=== PATIENT | female | born 1945 | race Caucasian/White ===

== ENCOUNTER → 2018-11-01 03:17 | Outpatient (REF) | payer MEDICARE, SELFPAY ==
[2018-11-01 03:31] LABS: Microscopic, Urine URINE MICROSCOPIC (MICROSCOPIC)
[2018-11-01 03:33] LABS: Appearance,Urine CLEAR (Clear); Bilirubin,Urine Negative (Negative); Blood, Urine Negative (Negative); Color,Urine YELLOW (Yellow); Glucose,Urine (UA) Negative (Negative); Ketones,Urine Negative (Negative); Leukocyte Esterase,Urine TRACE (Negative); Nitrate,Urine Negative (Negative); Protein,Urine Negative (Negative); Specific Gravity, Urine 1.015 (1.005-1.030); Urobilinogen,Urine 0.2 EU/dl (0.2)
[2018-11-01 03:35] LABS: Amorphous Sediment,Urine Trace /lpf; Bacteria,Urine Trace /lpf; WBC,Urine 20-50 #/hpf (0-3)
== END ==
LOC: LAB.DROPOF 03:17
PROVIDERS: Visit Provider Emergency Medicine
DX: R35.0 Frequency of micturition (principal); R10.9 Unspecified abdominal pain
CPT/HCPCS: 81001; 87086

== ENCOUNTER → 2018-12-31 09:34 | Outpatient (CLI) | payer MEDICARE, SELFPAY ==
--- NOTE | 2018-12-31 09:44 | CT_ITS ---
CT abdomen wo/w con CLINICAL INDICATION: ITS.REASON: ENLARGED ADRENAL GLANDS ORDERING PHYSICIAN: Rajinder Pineda MD PATIENT AGE: 73 years COMPARISON: None TECHNIQUE: Axial images obtained without and with contrast with sagittal and coronal reformats. Delayed images were also obtained. All CT scans at the facility use one or more dose reduction, viz: automated exposure control, ma/kV adjustment per patient size (including targeted exams where dose is matched to indication, i.e. head), or iterative reconstruction technique. PROCEDURE: Oral Contrast: None IV Contrast: 75 mL's Optiray 350. FINDINGS: Small loculated effusion is noted on the right is nearly with atelectatic changes in the right lung base. Coronary artery calcifications are present. Normal heart size. The adrenal glands aren't enlarged. The right adrenal gland measures 2.6 x 1.4 cm. The left adrenal gland measures 2.6 x 1.7 cm. The adrenal glands are enlarged bilaterally. The density on the right is near 00 unenhanced. An enhanced density in the left is -17 Hounsfield units. This is consistent with adenomatous involvement. Initial post enhancement density on the right is 59 Hounsfield units and on the left 39 Hounsfield units. Delayed enhanced density on the right is 1 and on the left is negative 4. These findings are consistent with adenomatous involvement. The liver, spleen, and kidneys have an unremarkable appearance. There is mild distention of the gallbladder. Images of the upper pelvis show a cystic structure in the right adnexa incompletely imaged measuring 3 cm. There is mild lumbar scoliosis convex right. 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 There is mild wedging of L4 which may be chronic. IMPRESSION: Bilateral adrenal enlargement with enhancement characteristics consistent with adenomas. 3 cm cystic structure in the upper pelvis incompletely imaged which may represent an ovarian cyst.
== END ==
PROVIDERS: PCP Emergency Medicine; Visit Provider Emergency Medicine
DX: E27.8 Other specified disorders of adrenal gland (principal)
CPT/HCPCS: 74170; Q9967

== ENCOUNTER → 2019-01-13 07:45 | Outpatient (CLI) | payer MEDICARE, SELFPAY ==
--- NOTE | 2019-01-13 07:45 | US_ITS ---
US gallbladder HISTORY: ITS.REASON: nausea, abdominal pain ORDERING PHYSICIAN: Aurelio Estrada MD PATIENT AGE: 73 years Comparison: 62 and [birth year]2003 12/31/2018. FINDINGS: Common bile duct is normal measuring 4.3 mm and there is no intrahepatic biliary dilatation. In the lumen of the gallbladder there is a 3.9 cm oval-shaped hypoechoic focus along the posterior wall of the gallbladder. The margins would suggest within the lumen rather than a mucosal mass. There is no definite acoustic shadowing. Gallbladder wall is normal and there is no pericholecystic fluid. Visualized portions of the portal vein and right kidney are unremarkable except for age-related right renal cortical thinning. Because of the bowel gas pattern the IVC and pancreas are not well visualized. IMPRESSION: Abnormal gallbladder. This could be a nonshadowing large stone although more likely would be area of sludge formation. No definite acute inflammation.
== END ==
PROVIDERS: PCP Family Medicine; Visit Provider Surgery
DX: K82.9 Disease of gallbladder, unspecified (principal)
CPT/HCPCS: 76705

== ENCOUNTER 2019-01-25 15:20 | Inpatient (IN) ==
[2019-01-25 15:45] LABS: Basophils % 0.1 % (0.1-2.0); Eosinophils % 0.1 % (0.1-12.0); Hematocrit 38.9 % (37.0-47.0); Hemoglobin 11.8 g/dL (12.2-16.2); Lymphocytes % 5.2 % (10-50); Mean Corpuscular HGB Conc 30.4 g/dL (31.8-35.4); Mean Corpuscular Volume 91.6 fl (81-99); Monocytes # 0.6 K/mm3 (0.1-1.0); Neutrophils # 17.9 K/mm3 (1.8-7.8); Neutrophils % 91.4 % (37.0-80.0); Platelet Count 199 K/mm3 (142-424); Red Blood Count 4.24 M/mm3 (4.20-5.40); Red Cell Distribution Width 16.4 % (11.5-17.5); White Blood Count 19.6 K/mm3 (4.8-10.8)
[2019-01-25 15:56] LABS: Alanine Aminotransferase 17 U/L (12-78); Albumin Level 2.4 gm/dL (3.4-5.0); Albumin/Globulin Ratio 0.6 (1.1-1.8); Alkaline Phosphatase 97 U/L (46-116); Anion Gap 13.3 mEq/L (5-15); Aspartate Amino Transferase 13 U/L (15-37); Bilirubin,Total 0.5 mg/dL (0.2-1.0); Blood Urea Nitrogen 23 mg/dL (7-18); Carbon Dioxide 31 mmol/L (21.0-32.0); Chloride 103 mmol/L (98-107); Glucose 146 mg/dL (74-106); Sodium 143 mmol/L (136-145); Total Protein,Serum 6.4 gm/dL (6.4-8.2)
[2019-01-25 15:57] LABS: ABG Base Excess 5.3 mmol/L (-2.4-2.3); ABG HCO3 30.3 mmhg (22.0-26.0); ABG Oxygen Saturation 98 % (90-100); ABG PH 7.39 mmol/L (7.35-7.45); ABG PO2 98.8 mmhg (80-100); ABG TCO2 31.9 mmhg (23-27)
[2019-01-25 15:59] LABS: ABG PCO2 51.2 mmhg (35.0-45.0); Allen's Test Acceptable; Oxygen 100 %
--- NOTE | 2019-01-25 15:59 | Emergency Department Note ---
ED Disposition Clinical Impression: Pneumonia, Hypoxemia Disposition: Admitted As Inpatient Condition on Discharge: Fair Referrals: Provider,Referral, [Primary Care Provider] - Time of Disposition: 16:14 - Critical Care Critical Care Time: No Attestation: On 01/25/19, the high probability of a clinically significant, sudden or life threatening deterioration of the following system(s) required my full and direct attention, intervention and personal management. The time I documented below is in addition to time spent performing reported procedures but includes the follo wing listed in this critical care notation. Medical Decision Making - Medical Records Medical records reviewed: Yes: I reviewed the patient's medical records. - Luis Inquiry Pt receiving controlled substance: No Luis was queried for this patient: No Vital Signs: 01/25/19 15:20 Temperature 97.7 F Temperature Source Rectal Pulse Rate [Right Brachial] 87 Respiratory Rate 24 Blood Pressure [Right Arm] 121/56 L Blood Pressure Mean [Right Arm] 77 Blood Pressure Source [Right Arm] Automatic Cuff Blood Pressure Position [Right Arm] Sitting 02 Sat by Pulse Oximetry 97 Oxygen Delivery Method Non-Rebreather - Lab Data Lab results reviewed: Yes: I reviewed the patient's lab results. Lab Results 01/25/19 15:20: WBC 19.6 H, RBC 4.24, Hgb 11.8 L, Hct 38.9, MCV 91.6, MCH 27.8, MCHC 30.4 L, RDW 16.4, Plt Count 199, MPV 9.0, Neut % (Auto) 91.4 H, Lymph % (Auto) 5.2 L, [place] % (Auto) 3.0, Eos % (Auto) 0.1, Baso % (Auto) 0.1, Neut # (Au to) 17.9 H, Lymph # (Auto) 1.0, [place] # (Auto) 0.6, Eos # (Auto) 0.0, Baso # (Auto) 0.0 01/25/19 15:20: Sodium 143, Potassium 4.3, Chloride 103, Carbon Dioxide 31, Anion Gap 13.3, BUN 23 H, Creatinine 1.24 H, Estimated Creat Clear 59, Estimated GFR 42 L, Est GFR ( Amer) 51 L, Glucose 146 H, Calcium 9.0, Total Bilirubin 0.5, AST 13 L, ALT 17, Alkaline Phosphatase 97, Troponin I < 0.02, Total Protein 6.4, Albumin 2.4 L, Globulin 4.0 H, Albumin/Globulin Ratio 0.6 L 01/25/19 15:54: Specimen Source Right brachial, O2 % 100, ABG pH 7.39, ABG pCO2 51.2 H, ABG pO2 98.8, ABG HCO3 30.3 H, ABG Total CO2 31.9 H, ABG O2 Saturation 98, ABG Base Excess 5.3 H, Braulio Test Acceptable Result diagrams: 01/25/19 15:20 01/25/19 15:20 Orders (Tests/Meds): ORDERS Category Date Time Status XR chest portable Stat Exams 01/25/19 15:27 Taken B-Type Natriuretic Peptide Stat Lab 01/25/19 15:20 Received CBC w/Auto Diff [Complete Blood Count Auto Diff] Stat Lab 01/25/19 15:20 Results Lactic Acid Stat Lab 01/25/19 15:27 Ordered Blood Culture Stat Micro 01/25/19 15:27 Ordered Resp/SOB HPI - General Chief Complaint: Shortness of Breath/Dyspnea Stated Complaint: shortness of air Time Seen by Provider: 01/25/19 15:56 Mode of Arrival: EMS Source of Information: EMS Limitations: No Limitations Description of Symptoms (Recalled from ER Triage Doc. by RN): increased soa, increased lethargy. staff state that she normall answers to name and sometimes surroundings, with moderate to maximum assist to get up and move. usually stays in bed, however this date is more difficult to arouse; staff nurse states that she noticed incr issues with breathing noted - History of Present Illness dyspnea, decreased BS in RLL - Related Data Home Medications Medication Instructions Recorded Confirmed amlodipine 10 mg tablet 10 mg PO DAILY 12/25/18 01/20/19 aripiprazole 5 mg tablet 5 mg PO DAILY 12/25/18 01/20/19 atorvastatin 10 mg tablet 10 mg PO QHS 12/25/18 01/20/19 carvedilol 25 mg tablet 25 mg PO BID 12/25/18 01/20/19 chlordiazepoxide 25 mg capsule 25 mg PO Q8H PRN 12/25/18 01/20/19 donepezil 5 mg tablet 5 mg PO DAILY 12/25/18 01/20/19 doxazosin 4 mg tablet 4 mg PO DAILY 12/25/18 01/20/19 lactulose 10 gram/15 mL (15 mL) 20 g PO QID 12/25/18 01/20/19 oral solution levothyroxine 112 mcg tablet 112 mcg PO DAILY 12/25/18 01/20/19 levothyroxine 25 mcg tablet 25 mcg PO DAILY 12/25/18 01/20/19 magnesium 400 mg (as magnesium 400 mg PO DAILY 12/25/18 01/20/19 oxide) capsule nicotine 21 mg/24 hr daily 1 patch TRANSDERMA Q24H 12/25/18 01/20/19 transdermal patch ondansetron HCl 4 mg tablet 4 mg PO QID PRN 12/25/18 01/20/19 oxycodone-acetaminophen 5 mg-325 1 tab PO Q6H PRN tab 12/25/18 01/20/19 mg tablet polyethylene glycol 3350 17 17 g PO DAILY 12/25/18 01/20/19 gram/dose oral powder sucralfate 1 gram tablet 1 g PO BID 12/25/18 01/20/19 tetrahydrozoline 0.05 % eye drops 1 drp OPHTHALMIC BID ml 12/25/18 01/20/19 thiamine mononitrate (vitamin B1) 100 mg PO DAILY 12/25/18 01/20/19 100 mg tablet Allergies Allergy/AdvReac Type Severity Reaction Status Date / Time Sulfa (Sulfonamide Allergy Unknown Verified 01/20/19 09:42 Antibiotics) [facility] History - Hepatitis A Screen Drug use history?: No High risk sexual behaviors?: No History of sexually transmitted infection?: No Currently employed?: No Childcare worker?: No Do you have indoor plumbing?: Yes Do you have electricity?: Yes Attestation statement:: This patient has been screened for Hepatitis A risk factors. I have reviewed the patient's past medical history: Yes Medical History: Reports:: Anxiety, Congestive Heart Failure, Hyperlipidemia, Hypertension, Urinary Tract Infection Other Medical History: Reports: Thyroid Disease Other Surgeries: Yes: Other - Social History Smoking Status: Former smoker Alcohol Intake: never Occupational Status: retired, disabled - Psychiatric History Pschychiatric History:: Reports:: Anxiety Family Hx:: Unable to obtain ROS Obtained: Yes unobtainable due to mental status, Yes other (dyspnea, weakness) - Constitutional Constitutional: Reports fever(s) - Cardiovascular Cardiovascular: Denies chest pain - Respiratory Respiratory: Yes chest congestion, Yes cough, Yes dyspnea - Gastrointestinal Gastrointestingal: Denies: abdominal pain, nausea, vomiting - Musculoskeletal Musculoskeletal: Denies back pain - Integumentary/Breasts Skin/Breast: Denies rash, Denies skin pain, Denies skin ulcer, Denies sores - Neurologic Neurologic: Denies tingling/numbness/burning sensations - Hematologic/Lymphatic Henatologic/Lymphatic: Denies easy bleeding, Denies easy bruising Physical Exam - General General appearance: obtunded - Head Head exam: atraumatic - ENT ENT exam: Present: normal exam - Respiratory Respiratory exam: Present: respiratory distress, other (rhonchi on right). Absent: normal lung sounds bilaterally - Cardiovascular Cardiovascular exam: Present: regular rate - Abdominal Exam Abdominal exam: Absent: soft, distention, tenderness - Extremities Exam Extremities exam: Present: normal inspection, full ROM, normal capillary refill. Absent: calf tenderness - Neurological Exam Neurological exam: Present: CN II-XII intact, other (grossly, answers only very simple questions). Absent: oriented X3 - Psychiatric Psychiatric exam: Present: normal affect, normal mood - Skin Skin exam: Present: warm, dry, intact, normal color
[2019-01-25 16:31] LABS: Anisocytosis 1+; Hypochromasia 1+; Lymphocytes % 1 % (10-50); Monocytes % 1 % (2-9); Neutrophils % 82 % (42-76); Total Cells Counted 100
[2019-01-26 07:14] LABS: Anion Gap 9.5 mEq/L (5-15); Calcium 9.1 mg/dL (8.5-10.1)
[2019-01-26 07:17] LABS: Eosinophils % 0.1 % (0.1-12.0); Hematocrit 35.1 % (37.0-47.0); Lymphocytes # 1.7 K/mm3 (0.7-4.5); Lymphocytes % 8.2 % (10-50); Mean Corpuscular HGB Conc 29.9 g/dL (31.8-35.4); Mean Corpuscular Volume 92.1 fl (81-99); Mean Platelet Volume 9.2 fl (7.4-10.4); Monocytes # 0.6 K/mm3 (0.1-1.0); Monocytes % 3.1 % (1.7-9.3); Neutrophils # 18.2 K/mm3 (1.8-7.8); Neutrophils % 88.7 % (37.0-80.0); Platelet Count 190 K/mm3 (142-424); Red Blood Count 3.81 M/mm3 (4.20-5.40); Red Cell Distribution Width 16.1 % (11.5-17.5); White Blood Count 20.5 K/mm3 (4.8-10.8)
[2019-01-26 07:33] LABS: Hemoglobin 10.4 g/dL (12.2-16.2)
--- NOTE | 2019-01-26 07:40 | Pharmacy Consult Notes ---
[facility] Pharmacy VTE Monitoring - Patient Demographics Admission date: 01/25/19 Report Date: 01/26/19 Time: 07:40 Allergies/Adverse Reactions: Patient Allergies Sulfa (Sulfonamide Antibiotics) Allergy (Unknown, Verified 01/20/19 09:42) Height: 1.85 m Weight: 87.657 kg Patient Problems: Current Active Problems (Updated 01/25/19 @ 16:15 by Rajinder Scherer MD) Pneumonia (Acute) Hypoxemia (Acute) - VTE Risk Labs: VTE Related Lab Results Hgb 10.4 g/dL (12.2-16.2) L D 01/26/19 06:13 Hct 35.1 % (37.0-47.0) L 01/26/19 06:13 Plt Count 190 K/mm3 (142-424) 01/26/19 06:13 BUN 39 mg/dL (7-18) H D 01/26/19 06:13 Creatinine 2.04 mg/dL (0.55-1.02) H D 01/26/19 06:13 Estimated Creat Clear 33 mL/min (50-200) 01/26/19 06:13 Was VTE Risk Assessment Performed: Yes VTE Score: 5 VTE Risk Level: Low Risk - Prophylaxis VTE Prophylaxis Ordered?: Yes Types of VTE Prophylaxis: TEDS Knee High Location of Applied Device: Bilateral Lower Extremeties - VTE Diagnosis Confirmed Treatment or plan recommended: Continue Current Treatment
--- NOTE | 2019-01-26 09:36 | History & Physical Report ---
*Admission Date: 01/25/19 <Luana Lagunas 01/26/19 09:36> *Chief complaint: soa <Luana Lagunas 01/26/19 09:36> *History of present illness: 73-year-old female from [facility] O2 dependent redness brought into the ER for complaints of increased shortness of breath, increased lethargic difficult to arouse. Per staff at [facility] in ER note patient was more difficult to arouse and breathing pattern was abnormal. On arrival to the ER ABG shows pH 7.39, PCO2 51.2, PO2 98.8, HC 03 30.3, total CO2 31.9, oxygen saturation 98% on 100% O2, base excess 5.3, white blood cell 19.6. Patient admitted for pneumonia,placed on BiPAP, IV antibiotics, IV fluids, and monitoring of O2 saturation and other vitals. <fernandoPrashantbibisavannah 01/26/19 09:49> [facility] History I have reviewed the patient's past medical history: Yes <fernandoPrashantruben 01/26/19 09:49> Medical History: Reports:: Anxiety, Congestive Heart Failure, Hyperlipidemia, Hypertension, Urinary Tract Infection <fernandoPrashantruben 01/26/19 09:36> *Have you ever received a pneumonia vaccine?: Yes <fernandoPrashantruben 01/26/19 09:36> *Have you received a flu vaccine this season?: Yes <JannethPrashantruben 01/26/19 09:36> Other Medical History: Reports: Thyroid Disease <Luana Lagunas 01/26/19 09:36> Other Surgeries: Yes: Other <Luana Lagunas 01/26/19 09:36> - *Social History Smoking Status: Former smoker <Luana Lagunas 01/26/19 09:36> Tobacco Type: cigarettes <Luana Lagunas 01/26/19 09:36> # Packs/Day (cigarettes): 1 <Luana Lagunas 01/26/19 09:36> Alcohol Intake: never <Luana Lagunas 01/26/19 09:36> *Occupational Status:: retired, disabled <FrLuana king - 01/26/19 09:36> Housing: jail <Luana king 01/26/19 09:36> *Travel in the last 8 weeks: None <Luana Lagunas 01/26/19 09:36> - Psychiatric History Pschychiatric History:: Reports:: Anxiety <Luana Lagunas 01/26/19 09:36> Family Hx:: Heart Attack, Hypertension, Stroke <Luana Lagunas 01/26/19 09:36> Review of Systems - Review of Systems Review of systems:: unable to obtain <Luana Lagunas 01/26/19 09:49> - *Neurologic Denies tingling/numbness/burning sensations <Luana Lagunas 01/26/19 09:36> Meds Home Medications Medication Instructions Recorded Confirmed Type ARIPiprazole [Abilify 5mg Tablet] 5 mg PO DAILY 01/25/19 01/25/19 History Amlodipine Besylate [Amlodipine 10 mg PO DAILY 01/25/19 01/25/19 History 10mg Tab] Atorvastatin Calcium [Lipitor 10mg 10 mg PO HS 01/25/19 01/25/19 History Tablet] Carvedilol [Carvedilol 25mg Tab] 25 mg PO BID 01/25/19 01/26/19 History Donepezil HCl [Aricept 5mg 5 mg PO DAILY 01/25/19 01/26/19 History Tablet] Doxazosin Mesylate [Cardura 4mg 4 mg PO DAILY 01/25/19 01/25/19 History Tab] Levothyroxine Sodium 112 mcg PO DAILY 01/25/19 01/25/19 History [Levothyroxine 112mcg (0.112mg) Tab] Levothyroxine Sodium 25 mcg PO DAILY 01/25/19 01/25/19 History [Levothyroxine 25mcg (0.025mg) Tab] Magnesium Oxide 400 mg PO DAILY 01/25/19 01/25/19 History Oxycodone HCl/Acetaminophen 1 tab PO Q6H 01/25/19 01/25/19 History [Oxycodone W/Apap 325mg Tablet] Polyethylene Glycol 3350 [Miralax 17 gm PO DAILY 01/25/19 01/25/19 History 17gm Packet] Sucralfate [Carafate 1gm Tab] 1 gm PO BID 01/25/19 01/25/19 History Thiamine HCl [Vitamin B-1] 100 mg PO DAILY 01/25/19 01/25/19 History chlordiazePOXIDE HCl [Librium 25mg 25 mg PO TID 01/25/19 01/25/19 History Capsule] Acetaminophen 500 mg PO Q6HP PRN 01/26/19 01/26/19 History Lactulose [Lactulose 10gm/15ml 20 gm PO DAILYP PRN 01/26/19 01/26/19 History Oral Soln] Ondansetron HCl [Ondansetron 4mg 4 mg PO Q6HP PRN 01/26/19 01/26/19 History Tablet] Propylene Glycol/Peg 400 [Systane 1 drp OP BIDP PRN 01/26/19 01/26/19 History 0.3-0.4% Eye Drops] <Singh Lacy - 01/26/19 18:44> Allergies Allergy/AdvReac Type Severity Reaction Status Date / Time Sulfa (Sulfonamide Allergy Unknown Verified 01/20/19 09:42 Antibiotics) <Singh Lacy - 01/26/19 18:44> Exam Vital signs and Labs for Last 24 Hours: Temp Pulse Resp BP Pulse Ox 98.8 F 66 21 124/57 L 94 L 01/26/19 15:47 01/26/19 15:47 01/26/19 15:47 01/26/19 15:47 01/26/19 15:47 Laboratory Results - last 24 hr 01/26/19 06:13: WBC 20.5 H*, RBC 3.81 L, Hgb 10.4 L D, Hct 35.1 L, MCV 92.1, MCH 27.6, MCHC 29.9 L, RDW 16.1, Plt Count 190, MPV 9.2, Neut % (Auto) 88.7 H, Lymph % (Auto) 8.2 L, [place] % (Auto) 3.1, Eos % (Auto) 0.1, Baso % (Auto) 0.0 L, Neut # (Auto) 18.2 H, Lymph # (Auto) 1.7, [place] # (Auto) 0.6, Eos # (Auto) 0.0, Baso # (Auto) 0.0, Total Counted 100, Neutrophils % (Manual) 81 H, Band Neutrophils % 5.0, Lymphocytes % (Manual) 10, Monocytes % (Manual) 4, Platelet Estimate Normal, RBC Morphology Normal 01/26/19 06:13: Sodium 142, Potassium 4.5, Chloride 104, Carbon Dioxide 33 H, Anion Gap 9.5, BUN 39 H D, Creatinine 2.04 H D, Estimated Creat Clear 33, Estimated GFR 24 L, Est GFR ( Amer) 29 L D, Glucose 113 H D, Calcium 9.1 <Singh Lacy - 01/26/19 18:44> Temp Pulse Resp BP Pulse Ox 98.8 F 57 L 20 107/45 L 99 01/26/19 08:00 01/26/19 08:00 01/26/19 08:00 01/26/19 08:00 01/26/19 08:00 Laboratory Results - last 24 hr 01/25/19 15:20: WBC 19.6 H, RBC 4.24, Hgb 11.8 L, Hct 38.9, MCV 91.6, MCH 27.8, MCHC 30.4 L, RDW 16.4, Plt Count 199, MPV 9.0, Neut % (Auto) 91.4 H, Lymph % (Auto) 5.2 L, [place] % (Auto) 3.0, Eos % (Auto) 0.1, Baso % (Auto) 0.1, Neut # (Auto) 17.9 H, Lymph # (Auto) 1.0, [place] # (Auto) 0.6, Eos # (Auto) 0.0, Baso # (Auto) 0.0, Total Counted 100, Neutrophils % (Manual) 82 H, Band Neutrophils % 16.0 H, Lymphocytes % (Manual) 1 L, Monocytes % (Manual) 1 L, Platelet Estimate Normal, Hypochromasia 1+, Anisocytosis 1+, Microcytosis 1+ 01/25/19 15:20: Sodium 143, Potassium 4.3, Chloride 103, Carbon Dioxide 31, Anion Gap 13.3, BUN 23 H, Creatinine 1.24 H, Estimated Creat Clear 59, Estimated GFR 42 L, Est GFR ( Amer) 51 L, Glucose 146 H, Calcium 9.0, Total Bilirubin 0.5, AST 13 L, ALT 17, Alkaline Phosphatase 97, Troponin I < 0.02, Total Protein 6.4, Albumin 2.4 L, Globulin 4.0 H, Albumin/Globulin Ratio 0.6 L 01/25/19 15:20: B-Natriuretic Peptide 147 H 01/25/19 15:50: Lactate 1.4 01/25/19 15:54: Specimen Source Right brachial, O2 % 100, ABG pH 7.39, ABG pCO2 51.2 H, ABG pO2 98.8, ABG HCO3 30.3 H, ABG Total CO2 31.9 H, ABG O2 Saturation 98, ABG Base Excess 5.3 H, Braulio Test Acceptable 01/26/19 06:13: WBC 20.5 H*, RBC 3.81 L, Hgb 10.4 L D, Hct 35.1 L, MCV 92.1, MCH 27.6, MCHC 29.9 L, RDW 16.1, Plt Count 190, MPV 9.2, Neut % (Auto) 88.7 H, Lymph % (Auto) 8.2 L, [place] % (Auto) 3.1, Eos % (Auto) 0.1, Baso % (Auto) 0.0 L, Neut # (Auto) 18.2 H, Lymph # (Auto) 1.7, [place] # (Auto) 0.6, Eos # (Auto) 0.0, Baso # (Auto) 0.0 01/26/19 06:13: Sodium 142, Potassium 4.5, Chloride 104, Carbon Dioxide 33 H, Anion Gap 9.5, BUN 39 H D, Creatinine 2.04 H D, Estimated Creat Clear 33, Estimated GFR 24 L, Est GFR ( Amer) 29 L D, Glucose 113 H D, Calcium 9.1 <Luana Lagunas - 01/26/19 09:36> I & O for Last 24 hours: Intake & Output 01/23/19 01/24/19 01/25/19 01/26/19 23:59 23:59 23:59 23:59 Intake Total 928 / 928 Output Total 300 / 300 Balance 628 / 628 Weight 89.953 kg 87.657 kg <Singh Lacy - 01/26/19 18:44> Intake & Output 01/23/19 01/24/19 01/25/19 01/26/19 11:59 11:59 11:59 11:59 Intake Total 828 / 828 Output Total 300 / 300 Balance 528 / 528 Weight 193 lb 4 oz <Luana Lagunas - 01/26/19 09:36> Microbiology Reports for the Last 24 Hours: Microbiology 01/25/19 15:50 Blood Blood Culture - Preliminary 01/25/19 15:50 Blood Blood Culture - Preliminary <Singh Lacy - 01/26/19 18:44> - Constitutional mild distress, obese <Luana Lagunas - 01/26/19 09:49> - *Routine HEENT Exam Head: Present: normocephalic <Luana Lagunas - 01/26/19 09:49> Eye: Present: PERRL <Luana Lagunas - 01/26/19 09:49> ENT: Present: mucous membranes moist <Luana Lagunas - 01/26/19 09:49> - *Routine Neck Exam Present: supple. Absent: lymphadenopathy <Luana Lagunas 01/26/19 09:49> - *Routine Respiratory Exam Present: rhonchi, diminished air movement <Luana Lagunas - 01/26/19 09:49> Comments: On BiPAP <Luana Lagunas - 01/26/19 09:49> - *Routine Cardiovascular Exam Present: RRR <Luana Lagunas 01/26/19 09:49> - *Routine Abdominal Exam Present: soft, normoactive bowel sounds. Absent: tenderness <Luana Lagunas 01/26/19 09:49> - *Routine Extremities Exam Present: full ROM, normal capillary refill. Absent: cyanosis, clubbing, edema <Luana Lagunas 01/26/19 09:49> - *Routine Skin Exam Present: intact, warm. Absent: rash <Luana Lagunas 01/26/19 09:49> - *Routine Neurological Exam Present: alert, altered mental status, moving all extremities <Luana Lagunas - 01/26/19 09:49> - Routine Psychiatric Exam Present: normal affect <Luana Lagunas - 01/26/19 09:49> Assessment and Plan (1) Hypoxemia Current visit: Yes Status: Acute Category: Medical Code(s): R09.02 - Hypoxemia (2) Pneumonia Current visit: Yes Status: Acute Qualifiers: Pneumonia type: due to unspecified organism Laterality: right Lung location: upper lobe of lung Qualified Code(s): J18.1 - Lobar pneumonia, unspecified organism Category: Medical Code(s): J18.9 - Pneumonia, unspecified organism (3) Left lower lobe pneumonia Current visit: Yes Status: Acute Qualifiers: Pneumonia type: due to unspecified organism Qualified Code(s): J18.1 - Lobar pneumonia, unspecified organism Category: Medical Code(s): J18.1 - Lobar pneumonia, unspecified organism <Luana Lagunas 01/26/19 09:45> (1) Hypoxemia Current visit: Yes Status: Acute Category: Medical Code(s): R09.02 - Hypoxemia (2) Pneumonia Current visit: Yes Status: Acute Qualifiers: Pneumonia type: due to unspecified organism Laterality: right Lung location: upper lobe of lung Qualified Code(s): J18.1 - Lobar pneumonia, unspecified organism Category: Medical Code(s): J18.9 - Pneumonia, unspecified organism (3) Left lower lobe pneumonia Current visit: Yes Status: Acute Qualifiers: Pneumonia type: due to unspecified organism Qualified Code(s): J18.1 - Lobar pneumonia, unspecified organism Category: Medical Code(s): J18.1 - Lobar pneumonia, unspecified organism <Singh Lacy - 01/26/19 18:44> - Assessment and plan all Dx Assessment and Plan for all problems:: Rounded with nurse practitioner. Agree with exam findings and care plan as documented. <Singh Lacy - 01/26/19 18:44> Rounded with Dr. Lacy all orders per Dr. Lacy Continue BiPAP patient is slightly more alert if continues to improve will remove BiPAP lunch and placed back on regular O2. Patient continues to cough up copious amount of thick yellow-green sputum. <Luana Lagunas 01/26/19 09:49>
[2019-01-26 10:37] LABS: Lymphocytes % 10 % (10-50); Monocytes % 4 % (2-9); Neutrophils % 81 % (42-76); Total Cells Counted 100
[2019-01-26 10:38] LABS: RBC Morphology Normal
[2019-01-27 06:06] LABS: Eosinophils % 0.1 % (0.1-12.0); Hematocrit 31.7 % (37.0-47.0); Hemoglobin 9.4 g/dL (12.2-16.2); Lymphocytes # 0.9 K/mm3 (0.7-4.5); Lymphocytes % 6.5 % (10-50); Mean Corpuscular HGB Conc 29.8 g/dL (31.8-35.4); Mean Corpuscular Volume 92.8 fl (81-99); Mean Platelet Volume 9.1 fl (7.4-10.4); Monocytes # 0.4 K/mm3 (0.1-1.0); Monocytes % 3.1 % (1.7-9.3); Neutrophils # 12.8 K/mm3 (1.8-7.8); Neutrophils % 90.3 % (37.0-80.0); Platelet Count 173 K/mm3 (142-424); Red Blood Count 3.42 M/mm3 (4.20-5.40); Red Cell Distribution Width 16.3 % (11.5-17.5); White Blood Count 14.1 K/mm3 (4.8-10.8)
[2019-01-27 06:59] LABS: Calcium 8.8 mg/dL (8.5-10.1)
--- NOTE | 2019-01-27 08:56 | Progress Note ---
<Luana Lagunas - Last Filed: 01/27/19 08:54> Internal Medicine - PN: Subj *Date: 01/27/19 *Time: 08:54 Interval history: Today patient is alert and answering questions. Close to baseline Exam Vital signs and Labs for Last 24 Hours: Temp Pulse Resp BP Pulse Ox 98.5 F 68 17 133/69 92 L 01/27/19 08:00 01/27/19 08:00 01/27/19 08:00 01/27/19 08:00 01/27/19 08:00 Laboratory Results - last 24 hr 01/26/19 06:13: Total Counted 100, Neutrophils % (Manual) 81 H, Band Neutrophils % 5.0, Lymphocytes % (Manual) 10, Monocytes % (Manual) 4, Platelet Estimate Normal, RBC Morphology Normal 01/27/19 05:36: WBC 14.1 H D, RBC 3.42 L, Hgb 9.4 L, Hct 31.7 L, MCV 92.8, MCH 27.6, MCHC 29.8 L, RDW 16.3, Plt Count 173, MPV 9.1, Neut % (Auto) 90.3 H, Lymph % (Auto) 6.5 L, Gilchrist % (Auto) 3.1, Eos % (Auto) 0.1, Baso % (Auto) 0.0 L, Neut # (Auto) 12.8 H, Lymph # (Auto) 0.9, Gilchrist # (Auto) 0.4, Eos # (Auto) 0.0, Baso # (Auto) 0.0 01/27/19 05:36: Sodium 145, Potassium 4.0, Chloride 109 H, Carbon Dioxide 29, Anion Gap 11.0, BUN 43 H, Creatinine 1.26 H D, Estimated Creat Clear 54, Estimated GFR 41 L, Est GFR ( Amer) 50 L D, Glucose 116 H, Calcium 8.8 I & O for Last 24 hours: Intake & Output 01/24/19 01/25/19 01/26/19 01/27/19 11:59 11:59 11:59 11:59 Intake Total 828 / 828 340 / 340 Output Total 300 / 300 Balance 528 / 528 340 / 340 Weight 193 lb 4 oz 195 lb 10 oz Microbiology Reports for the Last 24 Hours: Microbiology 01/25/19 15:50 Blood Blood Culture - Preliminary 01/25/19 15:50 Blood Blood Culture - Preliminary - Constitutional no acute distress, chronically ill appearing - *Routine HEENT Exam Head: Present: normocephalic Eye: Present: EOMI, PERRL ENT: Present: mucous membranes moist - *Routine Neck Exam Present: supple. Absent: lymphadenopathy - *Routine Respiratory Exam Present: rhonchi, diminished air movement - *Routine Cardiovascular Exam Present: RRR - *Routine Abdominal Exam Present: soft (Patient), normoactive bowel sounds. Absent: tenderness - *Routine Extremities Exam Present: full ROM. Absent: cyanosis ( is), clubbing, edema - *Routine Skin Exam Present: intact, warm. Absent: rash - *Routine Neurological Exam Present: alert - Routine Psychiatric Exam Present: normal affect Assessment and Plan (1) Hypoxemia Current visit: Yes Status: Acute Category: Medical Code(s): R09.02 - Hypoxemia (2) Pneumonia Current visit: Yes Status: Acute Qualifiers: Pneumonia type: due to unspecified organism Laterality: right Lung location: upper lobe of lung Qualified Code(s): J18.1 - Lobar pneumonia, unspecified organism Category: Medical Code(s): J18.9 - Pneumonia, unspecified organism (3) Left lower lobe pneumonia Current visit: Yes Status: Acute Qualifiers: Pneumonia type: due to unspecified organism Qualified Code(s): J18.1 - Lobar pneumonia, unspecified organism Category: Medical Code(s): J18.1 - Lobar pneumonia, unspecified organism - Assessment and plan all Dx Assessment and Plan for all problems:: rounded with jay all orders per jay Speech therapy to evaluate today. Continue present plan of care <Rom Muñoz - Last Filed: 01/27/19 14:36> Internal Medicine - PN: Subj *Date: 01/27/19 *Time: 14:35 Exam Vital signs and Labs for Last 24 Hours: Temp Pulse Resp BP Pulse Ox 98.4 F 65 21 147/59 H 92 L 01/27/19 12:00 01/27/19 12:00 01/27/19 12:00 01/27/19 12:00 01/27/19 12:00 Laboratory Results - last 24 hr 01/27/19 05:36: WBC 14.1 H D, RBC 3.42 L, Hgb 9.4 L, Hct 31.7 L, MCV 92.8, MCH 27.6, MCHC 29.8 L, RDW 16.3, Plt Count 173, MPV 9.1, Neut % (Auto) 90.3 H, Lymph % (Auto) 6.5 L, Gilchrist % (Auto) 3.1, Eos % (Auto) 0.1, Baso % (Auto) 0.0 L, Neut # (Auto) 12.8 H, Lymph # (Auto) 0.9, Gilchrist # (Auto) 0.4, Eos # (Auto) 0.0, Baso # (Auto) 0.0, Total Counted 100, Neutrophils % (Manual) 93 H, Lymphocytes % (Manual) 4 L, Monocytes % (Manual) 3, Platelet Estimate Normal, Hypochromasia 2+ 01/27/19 05:36: Sodium 145, Potassium 4.0, Chloride 109 H, Carbon Dioxide 29, Anion Gap 11.0, BUN 43 H, Creatinine 1.26 H D, Estimated Creat Clear 54, Estimated GFR 41 L, Est GFR ( Amer) 50 L D, Glucose 116 H, Calcium 8.8 01/27/19 06:10: Stl Aeromonas (PCR) Not detected, Stl C. cayetanensis PCR Not detected, Stool Rotavirus (PCR) Not detected, Stl Adenov F 40/41 PCR Not detected, Stool Astrovirus (PCR) Not detected, Stool Campylobacter PCR Not detected, Stl C.difficile Tox PCR Detected A, Stool Cryptosporidium PCR Not detected, Stl E.coli Shiga Tox PCR Not detected, Stool E coli O157 PCR Not d etected, Stl Enterotoxigenic E PCR Not detected, Stool EPEC (PCR) Not detected, Stool EAEC (PCR) Not detected, Stl E. histolytica PCR Not detected, Stool Giardia Lamblia PCR Not detected, Stool Salmonella PCR Not detected, Stool Sapovirus (PCR) Not detected, Stl P. shigelloides PCR Not detected, Stl Shigella/EIEC PCR Not detected, St Y.enterocolitica PCR Not detected, Stool Vibrio (PCR) Not detected, Stl Vibrio cholerae PCR Not detected, Stl Norovirus GI/GII PCR Not detected I & O for Last 24 hours: Intake & Output 01/25/19 01/26/19 01/27/1901/28/19 11:59 11:59 11:59 11:59 Intake Total 828 / 828 3968 / 3968 240 / 240 Output Total 300 / 300 Balance 528 / 528 3968 / 3968 240 / 240 Weight 193 lb 4 oz 195 lb 10 oz Microbiology Reports for the Last 24 Hours: Microbiology 01/25/19 15:50 Blood Blood Culture - Preliminary 01/25/19 15:50 Blood Blood Culture - Preliminary Assessment and Plan (1) Hypoxemia Current visit: Yes Status: Acute Category: Medical Code(s): R09.02 - Hypoxemia (2) Pneumonia Current visit: Yes Status: Acute Qualifiers: Pneumonia type: due to unspecified organism Laterality: right Lung location: upper lobe of lung Qualified Code(s): J18.1 - Lobar pneumonia, unspecified organism Category: Medical Code(s): J18.9 - Pneumonia, unspecified organism (3) Left lower lobe pneumonia Current visit: Yes Status: Acute Qualifiers: Pneumonia type: due to unspecified organism Qualified Code(s): J18.1 - Lobar pneumonia, unspecified organism Category: Medical Code(s): J18.1 - Lobar pneumonia, unspecified organism - Assessment and plan all Dx Assessment and Plan for all problems:: Agree with note... improving... c/w IV abx and await cultures.
[2019-01-27 10:08] LABS: Hypochromasia 2+; Lymphocytes % 4 % (10-50); Monocytes % 3 % (2-9); Neutrophils % 93 % (42-76); Total Cells Counted 100
[2019-01-28 06:59] LABS: Anion Gap 7.6 mEq/L (5-15); Calcium 8.8 mg/dL (8.5-10.1)
[2019-01-28 07:41] LABS: Basophils % 0.2 % (0.1-2.0); Eosinophils % 0.2 % (0.1-12.0); Hematocrit 34.1 % (37.0-47.0); Hemoglobin 9.7 g/dL (12.2-16.2); Lymphocytes # 1.1 K/mm3 (0.7-4.5); Lymphocytes % 11.6 % (10-50); Mean Corpuscular HGB Conc 28.5 g/dL (31.8-35.4); Mean Corpuscular Volume 96.3 fl (81-99); Mean Platelet Volume 8.9 fl (7.4-10.4); Monocytes # 0.4 K/mm3 (0.1-1.0); Neutrophils # 8.2 K/mm3 (1.8-7.8); Platelet Count 203 K/mm3 (142-424); Red Blood Count 3.55 M/mm3 (4.20-5.40); Red Cell Distribution Width 16.2 % (11.5-17.5); White Blood Count 9.8 K/mm3 (4.8-10.8)
--- NOTE | 2019-01-28 08:33 | Discharge Summary ---
General - General Admission date:: 01/25/19 Discharge date: 01/28/19 HPI HPI: 73-year-old female from [facility] O2 dependent redness brought into the ER for complaints of increased shortness of breath, increased lethargic difficult to arouse. Per staff at [facility] in ER note patient was more difficult to arouse and breathing pattern was abnormal. On arrival to the ER ABG shows pH 7.39, PCO2 51.2, PO2 98.8, HC 03 30.3, total CO2 31.9, oxygen saturation 98% on 100% O2, base excess 5.3, white blood cell 19.6. Patient admitted for pneumonia,placed on BiPAP, IV antibiotics, IV fluids, and monitoring of O2 saturation and other vitals. Hospital Course Hospital Course: X-ray shows right upper lobe pneumonia and possible left lower lobe pneumonia. Stool positive for C. difficile this is prison acquired we will continue p.o. vancomycin and contact precautions. Patient needed BiPAP and then transition to her regular home O2 at 3 L. Today patient alert back to baseline. Blood cultures positive for Haemophilus influenzae but to get the final result it has to be sent out and the final results will not be available for 7 days. Will treat with p.o. Levaquin and IV cefepime. Patient will be discharged back to [facility] with PICC line for IV antibiotics. Continue contact precautions and O2. Recheck CBC and CMP on Friday. Objective Vital signs: Temp Pulse Resp BP Pulse Ox 98.6 F 66 16 166/84 H 92 L 01/28/19 07:53 01/28/19 07:53 01/28/19 08:28 01/28/19 07:53 01/28/19 07:53 no acute distress, chronically ill appearing - *Routine HEENT Exam Head: Present: normocephalic Eye: Present: PERRL ENT: Present: mucous membranes moist - *Routine Respiratory Exam Present: rhonchi, wheezes, diminished air movement - *Routine Cardiovascular Exam Present: RRR - *Routine Abdominal Exam Present: soft, normoactive bowel sounds - *Routine Extremities Exam Present: full ROM - *Routine Skin Exam Present: intact - *Routine Neurological Exam Present: alert - Routine Psychiatric Exam Present: normal affect Results Labs on day of discharge: Labs from last 24 hours 0701/28/19 01/27/19 05:35 05:35 06:10 WBC 9.8 D RBC 3.55 L Hgb 9.7 L Hct 34.1 L MCV 96.3 MCH 27.4 MCHC 28.5 L RDW 16.2 Plt Count 203 MPV 8.9 Neut % (Auto) 84.0 H Lymph % (Auto) 11.6 Mckinley % (Auto) 4.0 Eos % (Auto) 0.2 Baso % (Auto) 0.2 Neut # (Auto) 8.2 H Lymph # (Auto) 1.1 Mckinley # (Auto) 0.4 Eos # (Auto) 0.0 Baso # (Auto) 0.0 Total Counted Neutrophils % (Manual) Lymphocytes % (Manual) Monocytes % (Manual) Platelet Estimate Hypochromasia Sodium 148 H Potassium 3.6 Chloride 114 H Carbon Dioxide 30 Anion Gap 7.6 BUN 31 H D Creatinine 0.94 D Estimated Creat Clear 71 Estimated GFR 58 L Est GFR ( Amer) 70 D Glucose 98 Calcium 8.8 Stl Aeromonas (PCR) Not detected Stl C. cayetanensis PCR Not detected Stool Rotavirus (PCR) Not detected Stl Adenov F 40/41 PCR Not detected Stool Astrovirus (PCR) Not detected Stool Campylobacter PCR Not detected Stl C.difficile Tox PCR Detected A Stool Cryptosporidium PCR Not detected Stl E.coli Shiga Tox PCR Not detected Stool E coli O157 PCR Not detected Stl Enterotoxigenic E PCR Not detected Stool EPEC (PCR) Not detected Stool EAEC (PCR) Not detected Stl E. histolytica PCR Not detected Stool Giardia Lamblia PCR Not detected Stool Salmonella PCR Not detected Stool Sapovirus (PCR) Not detected Stl P. shigelloides PCR Not detected Stl Shigella/EIEC PCR Not detected St Y.enterocolitica PCR Not detected Stool Vibrio (PCR) Not detected Stl Vibrio cholerae PCR Not detected Stl Norovirus GI/GII PCR Not detected 01/27/19 05:36 WBC RBC Hgb Hct MCV MCH MCHC RDW Plt Count MPV Neut % (Auto) Lymph % (Auto) Mckinley % (Auto) Eos % (Auto) Baso % (Auto) Neut # (Auto) Lymph # (Auto) Mckinley # (Auto) Eos # (Auto) Baso # (Auto) Total Counted 100 Neutrophils % (Manual) 93 H Lymphocytes % (Manual) 4 L Monocytes % (Manual) 3 Platelet Estimate Normal Hypochromasia 2+ Sodium Potassium Chloride Carbon Dioxide Anion Gap BUN Creatinine Estimated Creat Clear Estimated GFR Est GFR ( Amer) Glucose Calcium Stl Aeromonas (PCR) Stl C. cayetanensis PCR Stool Rotavirus (PCR) Stl Adenov F 40/41 PCR Stool Astrovirus (PCR) Stool Campylobacter PCR Stl C.difficile Tox PCR Stool Cryptosporidium PCR Stl E.coli Shiga Tox PCR Stool E coli O157 PCR Stl Enterotoxigenic E PCR Stool EPEC (PCR) Stool EAEC (PCR) Stl E. histolytica PCR Stool Giardia Lamblia PCR Stool Salmonella PCR Stool Sapovirus (PCR) Stl P. shigelloides PCR Stl Shigella/EIEC PCR St Y.enterocolitica PCR Stool Vibrio (PCR) Stl Vibrio cholerae PCR Stl Norovirus GI/GII PCR Preliminary micro results at discharge 01/25/19 15:50 Blood Culture - Preliminary Blood 01/25/19 15:50 Blood Culture - Preliminary Blood - Additional Comments rounded with Dr Muñoz all orders per Wanda DS: Diagnosis - Discharge Diagnosis (1) Hypoxemia Status: Acute (2) Pneumonia Status: Acute (3) Left lower lobe pneumonia Status: Acute (4) Bacteremia Status: Acute (5) C. difficile diarrhea Status: Acute (6) On home O2 Status: Acute (7) Dysphagia Status: Acute Discharge Plan - Patient Discharge Instructions ACTIVITY: Continue current activity DIET: continue same diet Patient Instructions: DI for Pneumonia -- Adult, DI for Hypoxia - Follow up Plan Follow up with: Luana Lagunas APRN [Advanced Practice Nurse] - Disposition: Xfer [facility] Home Medications: Home Medications Medication Instructions Recorded Confirmed Type ARIPiprazole [Abilify 5mg Tablet] 5 mg PO DAILY 01/25/19 01/25/19 History Amlodipine Besylate [Amlodipine 10 mg PO DAILY 01/25/19 01/25/19 History 10mg Tab] Atorvastatin Calcium [Lipitor 10mg 10 mg PO HS 01/25/19 01/25/19 History Tablet] Carvedilol [Carvedilol 25mg Tab] 25 mg PO BID 01/25/19 01/26/19 History Donepezil HCl [Aricept 5mg 5 mg PO DAILY 01/25/19 01/26/19 History Tablet] Doxazosin Mesylate [Cardura 4mg 4 mg PO DAILY 01/25/19 01/25/19 History Tab] Levothyroxine Sodium 112 mcg PO DAILY 01/25/19 01/25/19 History [Levothyroxine 112mcg (0.112mg) Tab] Levothyroxine Sodium 25 mcg PO DAILY 01/25/19 01/25/19 History [Levothyroxine 25mcg (0.025mg) Tab] Magnesium Oxide 400 mg PO DAILY 01/25/19 01/25/19 History Oxycodone HCl/Acetaminophen 1 tab PO Q6H 01/25/19 01/25/19 History [Oxycodone W/Apap 325mg Tablet] Polyethylene Glycol 3350 [Miralax 17 gm PO DAILY 01/25/19 01/25/19 History 17gm Packet] Sucralfate [Carafate 1gm Tab] 1 gm PO BID 01/25/19 01/25/19 History Thiamine HCl [Vitamin B-1] 100 mg PO DAILY 01/25/19 01/25/19 History chlordiazePOXIDE HCl [Librium 25mg 25 mg PO TID 01/25/19 01/25/19 History Capsule] Acetaminophen 500 mg PO Q6HP PRN 01/26/19 01/26/19 History Lactulose [Lactulose 10gm/15ml 20 gm PO DAILYP PRN 01/26/19 01/26/19 History Oral Soln] Ondansetron HCl [Ondansetron 4mg 4 mg PO Q6HP PRN 01/26/19 01/26/19 History Tablet] Propylene Glycol/Peg 400 [Systane 1 drp OP BIDP PRN 01/26/19 01/26/19 History 0.3-0.4% Eye Drops] Cefepime HCl [Maxipime] 1 gm IV Q12 10 Days vial.port 01/28/19 Rx Vancomycin HCl [Vancomycin 500mg 125 mg PO Q6 14 Days vial 01/28/19 Rx vial] levoFLOXacin [Levaquin 500mg 500 mg PO DAILY #10 tab 01/28/19 Rx tab] Prescriptions/Medication Reconciliation: New levoFLOXacin [Levaquin 500mg tab] 500 mg PO DAILY #10 tab Cefepime HCl [Maxipime] 1 gm IV Q12 10 Days vial.port Vancomycin HCl [Vancomycin 500mg vial] 125 mg PO Q6 14 Days vial Continued Sucralfate [Carafate 1gm Tab] 1 gm PO BID Levothyroxine Sodium [Levothyroxine 112mcg (0.112mg) Tab] 112 mcg PO DAILY Atorvastatin Calcium [Lipitor 10mg Tablet] 10 mg PO HS ARIPiprazole [Abilify 5mg Tablet] 5 mg PO DAILY Amlodipine Besylate [Amlodipine 10mg Tab] 10 mg PO DAILY Thiamine HCl [Vitamin B-1] 100 mg PO DAILY Oxycodone HCl/Acetaminophen [Oxycodone W/Apap 325mg Tablet] 1 tab PO Q6H Magnesium Oxide 400 mg PO DAILY Doxazosin Mesylate [Cardura 4mg Tab] 4 mg PO DAILY Donepezil HCl [Aricept 5mg Tablet] 5 mg PO DAILY chlordiazePOXIDE HCl [Librium 25mg Capsule] 25 mg PO TID Acetaminophen 500 mg PO Q6HP PRN PRN Reason: As Needed For Fever Or Pain Lactulose [Lactulose 10gm/15ml Oral Soln] 20 gm PO DAILYP PRN PRN Reason: STOMACH Ondansetron HCl [Ondansetron 4mg Tablet] 4 mg PO Q6HP PRN PRN Reason: Nausea Propylene Glycol/Peg 400 [Systane 0.3-0.4% Eye Drops] 1 drp OP BIDP PRN PRN Reason: DRY EYES Carvedilol [Carvedilol 25mg Tab] 25 mg PO BID Discontinued Levothyroxine Sodium [Levothyroxine 25mcg (0.025mg) Tab] 25 mcg PO DAILY Polyethylene Glycol 3350 [Miralax 17gm Packet] 17 gm PO DAILY
== END 2019-01-28 12:39 | DRG 194 ==
LOC: 2ND 15:20 → ER 15:20 → 2ND 18:22 → OBSVTOIN 18:32
PROVIDERS: ADMIT Internal Medicine Adolescent Medicine; ATTEND Internal Medicine Adolescent Medicine
CPT/HCPCS: 36415; 36569; 71010; 71045; 80048; 80053; 82803; 83605; 83880; 84484; 85007; 85025; 87040; 87077; 87507; 92610; 93005; 94660; 94761; 96365; 99284; C1751; G0378; J1956; J2405; J2543; J3370

== ENCOUNTER 2019-01-28 20:51 | Observation (INO) ==
--- NOTE | 2019-01-28 21:13 | Emergency Department Note ---
ED Disposition Clinical Impression: Hypernatremia, Hyperchloremia, Chronic anemia, Hypermagnesemia, Hypoxia Altered mental status Qualifiers: Altered mental status type: persistent vegetative state Qualified Code(s): R40.3 - Persistent vegetative state Pneumonia Qualifiers: Pneumonia type: due to unspecified organism Laterality: unspecified laterality Lung location: unspecified part of lung Qualified Code(s): J18.9 - Pneumonia, unspecified organism Leukocytosis Qualifiers: Leukocytosis type: unspecified Qualified Code(s): D72.829 - Elevated white blood cell count, unspecified Disposition: Admitted as Observation Condition on Discharge: Fair (Stable) Instructions: DI for Altered Mental Status Referrals: Rajinder Pineda MD [Primary Care Provider] - Rom Prather MD [Staff Physician] - Time of Disposition: 00:12 - Critical Care Critical Care Time: No Attestation: On 01/28/19, the high probability of a clinically significant, sudden or life threatening deterioration of the following system(s) required my full and direct attention, intervention and personal management. The time I documented below is in addition to time spent performing reported procedures but includes the following listed in this critical care notation. Medical Decision Making - Medical Records Medical records reviewed: Yes: I reviewed the patient's medical records. - Luis Inquiry Pt receiving controlled substance: No Luis was queried for this patient: No Vital Signs: 01/28/19 20:52 01/28/19 21:07 01/28/19 21:13 Temperature 99.6 F Temperature Source Rectal Pulse Rate 65 Pulse Rate [Right] 71 62 Respiratory Rate 24 Blood Pressure [Right Arm] 140/67 116/54 L Blood Pressure Mean [Right Arm] 91 74 Blood Pressure Source [Right Arm] Blood Pressure Position [Right Arm] Supine 02 Sat by Pulse Oximetry 88 L 91 L Oxygen Delivery Method CPAP BiPAP Oxygen Flow Rate (LPM) 15 01/28/19 21:30 01/28/19 22:00 01/28/19 22:30 Temperature Temperature Source Pulse Rate Pulse Rate [Right] 62 63 61 Respiratory Rate Blood Pressure [Right Arm] 136/75 134/59 L 130/61 Blood Pressure Mean [Right Arm] 95 84 84 Blood Pressure Source [Right Arm] Blood Pressure Position [Right Arm] 02 Sat by Pulse Oximetry 95 97 98 Oxygen Delivery Method BiPAP Oxygen Flow Rate (LPM) 01/28/19 22:35 01/28/19 23:00 01/28/19 23:45 Temperature Temperature Source Pulse Rate Pulse Rate [Right] 61 62 62 Respiratory Rate 22 Blood Pressure [Right Arm] 136/59 L 126/49 L 124/49 L Blood Pressure Mean [Right Arm] 84 74 74 Blood Pressure Source [Right Arm] Automatic Cuff Blood Pressure Position [Right Arm] Sitting 02 Sat by Pulse Oximetry 99 100 100 Oxygen Delivery Method BiPAP BiPAP BiPAP Oxygen Flow Rate (LPM) - Lab Data Lab Results 01/28/19 20:50: WBC 12.4 H D, RBC 3.75 L, Hgb 9.8 L, Hct 34.2 L, MCV 91.2, MCH 26.2 L, MCHC 28.8 L, RDW 15.8, Plt Count 228, MPV 7.6, Neut % (Auto) 84.4 H, Lymph % (Auto) 9.9 L, [place] % (Auto) 5.1, Eos % (Auto) 0.2, Baso % (Auto) 0.3, Neut # (Auto) 10.5 H, Lymph # (Auto) 1.2, [place] # (Auto) 0.6, Eos # (Auto) 0.0, Baso # (Auto) 0.0 01/28/19 20:50: Sodium 149 H, Potassium 4.1, Chloride 114 H, Carbon Dioxide 33 H , Anion Gap 6.1, BUN 26 H, Creatinine 0.83, Estimated Creat Clear 84, Estimated GFR 67, Est GFR ( Amer) 81, Glucose 114 H, Calcium 8.9, Magnesium 2.4 H, Total Bilirubin 0.2, AST 19, ALT 23, Alkaline Phosphatase 96, Troponin I 0.05, Total Protein 6.0 L, Albumin 2.0 L, Globulin 4.0 H, Albumin/Globulin Ratio 0.5 L , TSH 3.13, Plasma/Serum Alcohol 0 01/28/19 20:50: Lactate 0.3 L 01/28/19 21:11: POC Glucose 107 01/28/19 21:20: Ammonia 42 01/28/19 22:55: Urine Color Yellow, Urine Appearance Clear, Urine pH 6.0, Ur Specific [place] >= 1.030, Urine Protein 1+, Urine Glucose (UA) Negative, Urine Ketones Negative, Urine Blood 1+, Urine Nitrate Negative, Urine Bilirubin Negative, Urine Urobilinogen 0.2, Ur Leukocyte Esterase Negative, Urine RBC 10- 20, Urine WBC 3-5, Ur Squamous Epith Cells 3-5 01/28/19 22:55: Urine Opiates Screen Positive H, Urine Methadone Screen Negative, Ur Barbituates Screen Negative, Ur Phencyclidine Scrn Negative, Ur Amphetamines Screen Negative, U Benzodiazepines Scrn Positive H, Urine Cocaine Screen Negative, U Marijuana (THC) Screen Negative Result diagrams: 01/28/19 20:50 01/28/19 20:50 Orders (Tests/Meds): ED MEDICATIONS Generic Name Dose Route Start Last Admin Trade Name Freq PRN Reason Stop Dose Admin Sodium Chloride 1,000 mls @ 100 mls/hr 01/28/19 21:15 01/28/19 21:25 Sod Chlor 0.9% 1000ml Bag IV 02/27/19 21:14 100 mls/hr .Q10H ARYAN Administration Discontinued Medications Generic Name Dose Route Start Last Admin Trade Name Freq PRN Reason Stop Dose Admin Albuterol/Ipratropium 3 ml 01/28/19 21:06 01/28/19 21:10 Duoneb 3ml Neb IH 01/28/19 21:07 3 ml ONCE ONE Administration ORDERS Category Date Time Status CT head/brain wo con Stat Cat Scan 01/28/19 23:44 Ordered XR chest portable Stat Exams 01/28/19 21:07 Taken Trop I [Troponin I] Stat Lab 01/28/19 23:44 Ordered ABG [Arterial Blood Gas] Stat RT 01/28/19 21:16 Ordered ECG Request by /Nse Stat Y 01/28/19 21:07 Ordered - ECG Data Tracing #1 I reviewed this ECG and interpreted as documented below: (EKG a20:48 shows NSR at 72 BPM.) Medical Decision Narrative: 21:15 Pt evaluated at 20:40 in room 2 immediately after arrival in ER. Sepsis work up ordered and pending. BIPAP also ordered. 23:51 EKG, PCXR and all labs reviewed. I believe AMS is probably due to her oxycodone and benzodiazepines. CT head w/o contrast and 2nd troponin are still pending. I have discussed results of work up, diagnosis and care plan to include admission with pt's son who understands, agrees and all questions answered. 00:[address] Prather temperature control inspector for Dr. Pineda and he has accepted care/admit of pt. Son and pt aware of admission. All questions answered. Altered Mental Status HPI - General Chief Complaint: Altered Mental Status Stated Complaint: LOC Time Seen by Provider: 01/28/19 20:51 Mode of Arrival: EMS Source of Information: Medical Record Limitations: Altered Mental Status Description of Symptoms (Recalled from ER Triage Doc. by RN): Pt here VIA AMY for unresponciveness - History of Present Illness HPI narrative: Pt is here in the ER via EMS from local [facility] for AMS. Pt discharged from this hospital around lunch time today to [facility]. Pt was admitted a few days ago for pneumonia and c. difficile. Pt improved and was subsequently discharged. She is now here for further care. Pt is obtunded and nonverbal. She only attempted to move her left fingers upon my request. Pt unable to follow any other commands. Pt on CPAP by EMS. ROS unobtainable due to her AMS. - Related Data Home Medications Medication Instructions Recorded Confirmed ARIPiprazole [Abilify 5mg Tablet] 5 mg PO DAILY 01/25/19 01/28/19 Atorvastatin Calcium [Lipitor 10mg 10 mg PO HS 01/25/19 01/28/19 Tablet] Carvedilol [Carvedilol 25mg Tab] 25 mg PO BID 01/25/19 01/28/19 Donepezil HCl [Aricept 5mg 5 mg PO DAILY 01/25/19 01/28/19 Tablet] Doxazosin Mesylate [Cardura 4mg 4 mg PO DAILY 01/25/19 01/28/19 Tab] Levothyroxine Sodium 112 mcg PO DAILY 01/25/19 01/28/19 [Levothyroxine 112mcg (0.112mg) Tab] Magnesium Oxide 400 mg PO DAILY 01/25/19 01/28/19 Oxycodone HCl/Acetaminophen 1 tab PO Q6H 01/25/19 01/28/19 [Oxycodone W/Apap 325mg Tablet] Sucralfate [Carafate 1gm Tab] 1 gm PO BID 01/25/19 01/28/19 Thiamine HCl [Vitamin B-1] 100 mg PO DAILY 01/25/19 01/28/19 chlordiazePOXIDE HCl [Librium 25mg 25 mg PO TID 01/25/19 01/28/19 Capsule] Acetaminophen 500 mg PO Q6HP PRN 01/26/19 01/28/19 Lactulose [Lactulose 10gm/15ml 30 gm PO DAILYP PRN 01/26/19 01/28/19 Oral Soln] Ondansetron HCl [Ondansetron 4mg 4 mg PO Q6HP PRN 01/26/19 01/28/19 Tablet] Propylene Glycol/Peg 400 [Systane 1 drp OP BIDP PRN 01/26/19 01/28/19 0.3-0.4% Eye Drops] Amlodipine Besylate [Norvasc 10mg 10 mg PO DAILY 01/28/19 01/28/19 tablet] Cefepime HCl [Maxipime] 1 gm IV Q12 01/28/19 01/28/19 Vancomycin HCl [Vancomycin 500mg 125 mg PO Q6 01/28/19 01/28/19 vial] levoFLOXacin [Levaquin 500mg 500 mg PO DAILY 01/28/19 01/28/19 tab] Allergies Allergy/AdvReac Type Severity Reaction Status Date / Time Sulfa (Sulfonamide Allergy Unknown Verified 01/20/19 09:42 Antibiotics) [facility] History - Hepatitis A Screen Drug use history?: No High risk sexual behaviors?: No History of sexually transmitted infection?: No Currently employed?: No Childcare worker?: No Do you have indoor plumbing?: Yes Do you have electricity?: Yes Attestation statement:: This patient has been screened for Hepatitis A risk factors. I have reviewed the patient's past medical history: Yes Medical History: Reports:: Anxiety, Congestive Heart Failure, Hyperlipidemia, Hypertension, Urinary Tract Infection Other Medical History: Reports: Thyroid Disease Other Surgeries: Yes: Other - Social History Smoking Status: Former smoker Tobacco Type: cigarettes # Packs/Day (cigarettes): 1 Alcohol Intake: never Occupational Status: retired, disabled Housing: retirement - Psychiatric History Pschychiatric History:: Reports:: Anxiety Family Hx:: Heart Attack, Hypertension, Stroke ROS Obtained: Yes unobtainable due to mental condition Physical Exam - General General appearance: other (Obtunded) - Head Head exam: atraumatic, normocephalic, normal inspection - Eye Eye exam: Present: PERRL (~3 mm OU) - ENT ENT exam: Present: mucous membranes moist, other (No otic or nasal discharge.) - Neck Neck exam: Present: trachea midline - Chest Chest inspection: Present: normal inspection, symmetric chest wall rise - Respiratory Respiratory exam: Present: other (Diminished BS bilaterally with left middle and lower lunch rhonchi.) - Cardiovascular Cardiovascular exam: Present: regular rate. Absent: gallop, JVD - Abdominal Exam Abdominal exam: Present: soft, diminished bowel sounds, other (Obese). Absent: distention, tenderness, guarding, rebound, rigidity - Extremities Exam Extremities exam: Present: normal capillary refill, other (Mild right heel redness/skin breakdown with booty on.) - Neurological Exam Neurological exam: Present: other (Obtunded.) - Psychiatric Psychiatric exam: Present: other (Obtunded) - Skin Skin exam: Present: warm, dry, intact. Absent: rash
[2019-01-28 21:27] LABS: Basophils % 0.3 % (0.1-2.0); Eosinophils % 0.2 % (0.1-12.0); Hematocrit 34.2 % (37.0-47.0); Hemoglobin 9.8 g/dL (12.2-16.2); Lymphocytes # 1.2 K/mm3 (0.7-4.5); Lymphocytes % 9.9 % (10-50); Mean Corpuscular HGB Conc 28.8 g/dL (31.8-35.4); Mean Corpuscular Volume 91.2 fl (81-99); Mean Platelet Volume 7.6 fl (7.4-10.4); Monocytes # 0.6 K/mm3 (0.1-1.0); Monocytes % 5.1 % (1.7-9.3); Neutrophils # 10.5 K/mm3 (1.8-7.8); Neutrophils % 84.4 % (37.0-80.0); Platelet Count 228 K/mm3 (142-424); Red Blood Count 3.75 M/mm3 (4.20-5.40); Red Cell Distribution Width 15.8 % (11.5-17.5); White Blood Count 12.4 K/mm3 (4.8-10.8)
[2019-01-28 21:37] LABS: Albumin/Globulin Ratio 0.5 (1.1-1.8); Anion Gap 6.1 mEq/L (5-15); Bilirubin,Total 0.2 mg/dL (0.2-1.0); Calcium 8.9 mg/dL (8.5-10.1); Thyroid Stimulating Hormone 3.13 uIU/ml (0.358-3.740)
[2019-01-28 22:59] LABS: Microscopic, Urine URINE MICROSCOPIC (MICROSCOPIC)
[2019-01-28 23:02] LABS: Appearance,Urine CLEAR (Clear); Bilirubin,Urine Negative (Negative); Blood, Urine 1+ (Negative); Color,Urine YELLOW (Yellow); Glucose,Urine (UA) Negative (Negative); Ketones,Urine Negative (Negative); Leukocyte Esterase,Urine Negative (Negative); Protein,Urine 1+ (Negative); Specific Gravity, Urine >= 1.030 (1.005-1.030); Urobilinogen,Urine 0.2 EU/dl (0.2)
[2019-01-28 23:09] LABS: Amphetamine/Metha Screen,Urine Negative ng/mL (<1000); Barbiturates Screen,Urine Negative ng/mL (<200); Benzodiazepines Screen,Urine Positive ng/mL (<200); Cannabinoid Screen,Urine Negative ng/mL (<50); Cocaine Screen,Urine Negative ng/mL (<300); Methadone Screen,Urine Negative ng/mL (<300); Opiate Screen,Urine Positive ng/mL (<300); Phencyclidine Screen,Urine Negative ng/mL (<25)
[2019-01-29 06:15] LABS: Basophils % 0.2 % (0.1-2.0); Eosinophils % 0.1 % (0.1-12.0); Hemoglobin 9.2 g/dL (12.2-16.2); Lymphocytes # 1.1 K/mm3 (0.7-4.5); Lymphocytes % 9.7 % (10-50); Mean Corpuscular HGB Conc 28.7 g/dL (31.8-35.4); Mean Corpuscular Volume 91.7 fl (81-99); Mean Platelet Volume 7.7 fl (7.4-10.4); Monocytes # 0.7 K/mm3 (0.1-1.0); Monocytes % 6.3 % (1.7-9.3); Neutrophils % 83.6 % (37.0-80.0); Platelet Count 200 K/mm3 (142-424); Red Blood Count 3.49 M/mm3 (4.20-5.40); Red Cell Distribution Width 15.9 % (11.5-17.5); White Blood Count 10.8 K/mm3 (4.8-10.8)
[2019-01-29 06:34] LABS: Albumin/Globulin Ratio 0.5 (1.1-1.8); Anion Gap 5.9 mEq/L (5-15); Bilirubin,Total 0.2 mg/dL (0.2-1.0); Globulin 3.7 gm/dl (1.3-3.2); Total Protein,Serum 5.7 gm/dL (6.4-8.2)
--- NOTE | 2019-01-29 07:39 | Pharmacy Consult Notes ---
[facility] Pharmacy VTE Monitoring - Patient Demographics Admission date: 01/29/19 Report Date: 01/29/19 Time: 07:39 Allergies/Adverse Reactions: Patient Allergies Sulfa (Sulfonamide Antibiotics) Allergy (Unknown, Verified 01/29/19 02:59) Height: 1.65 m Weight: 92.59 kg Patient Problems: Current Active Problems (Updated 01/29/19 @ 00:13 by Mónica Salazar III, DO) Pneumonia (Acute) Altered mental status (Acute) Hypernatremia (Acute) Hyperchloremia (Acute) Chronic anemia (Acute) Hypermagnesemia (Acute) Leukocytosis (Acute) Hypoxia (Acute) - VTE Risk Labs: VTE Related Lab Results Hgb 9.2 g/dL (12.2-16.2) L 01/29/19 05:45 Hct 32.0 % (37.0-47.0) L 01/29/19 05:45 Plt Count 200 K/mm3 (142-424) 01/29/19 05:45 BUN 25 mg/dL (7-18) H 01/29/19 05:45 Creatinine 0.78 mg/dL (0.55-1.02) 01/29/19 05:45 Estimated Creat Clear 71 mL/min (50-200) 01/29/19 05:45 Was VTE Risk Assessment Performed: Yes VTE Score: 10 VTE Risk Level: Moderate Risk Clinical Trial Participant: No - Prophylaxis Location of Applied Device: Not Applicable
--- NOTE | 2019-01-29 08:20 | Pharmacy Consult Notes ---
- Pharmacy Consult Date: 01/29/19 Time: 08:19 Referring provider: DR. SAUCEDO Reason for Consult:: VANCOMYCIN DOSING Allergies and ADEs:: Allergies Allergy/AdvReac Type Severity Reaction Status Date / Time Sulfa (Sulfonamide Allergy Unknown Verified 01/29/19 02:59 Antibiotics) Home Medications:: Home Medications Medication Instructions Recorded Confirmed Type ARIPiprazole [Abilify 5mg Tablet] 5 mg PO DAILY 01/25/19 01/29/19 History Atorvastatin Calcium [Lipitor 10mg 10 mg PO HS 01/25/19 01/29/19 History Tablet] Carvedilol [Carvedilol 25mg Tab] 25 mg PO BID 01/25/19 01/29/19 History Donepezil HCl [Aricept 5mg 5 mg PO DAILY 01/25/19 01/29/19 History Tablet] Doxazosin Mesylate [Cardura 4mg 4 mg PO DAILY 01/25/19 01/29/19 History Tab] Levothyroxine Sodium 112 mcg PO DAILY 01/25/19 01/29/19 History [Levothyroxine 112mcg (0.112mg) Tab] Magnesium Oxide 400 mg PO DAILY 01/25/19 01/29/19 History Oxycodone HCl/Acetaminophen 1 tab PO Q6H 01/25/19 01/28/19 History [Oxycodone W/Apap 325mg Tablet] Sucralfate [Carafate 1gm Tab] 1 gm PO BID 01/25/19 01/29/19 History Thiamine HCl [Vitamin B-1] 100 mg PO DAILY 01/25/19 01/29/19 History chlordiazePOXIDE HCl [Librium 25mg 25 mg PO BID 01/25/19 01/29/19 History Capsule] Acetaminophen 500 mg PO Q6HP PRN 01/26/19 01/28/19 History Lactulose [Lactulose 10gm/15ml 30 gm PO DAILYP PRN 01/26/19 01/28/19 History Oral Soln] Ondansetron HCl [Ondansetron 4mg 4 mg PO Q6HP PRN 01/26/19 01/28/19 History Tablet] Propylene Glycol/Peg 400 [Systane 1 drp OP BIDP PRN 01/26/19 01/28/19 History 0.3-0.4% Eye Drops] Amlodipine Besylate [Norvasc 10mg 10 mg PO DAILY 01/28/19 01/29/19 History tablet] Cefepime HCl [Maxipime] 1 gm IV Q12 01/28/19 01/29/19 History Vancomycin HCl [Vancomycin 500mg 125 mg PO Q6 01/28/19 01/29/19 History vial] levoFLOXacin [Levaquin 500mg 500 mg PO DAILY 01/28/19 01/29/19 History tab] Height: 1.65 m Weight: 92.59 kg Laboratory Results:: Laboratory Results - last 24 hr 01/28/19 20:50: WBC 12.4 H D, RBC 3.75 L, Hgb 9.8 L, Hct 34.2 L, MCV 91.2, MCH 26.2 L, MCHC 28.8 L, RDW 15.8, Plt Count 228, MPV 7.6, Neut % (Auto) 84.4 H, Lymph % (Auto) 9.9 L, [place] % (Auto) 5.1, Eos % (Auto) 0.2, Baso % (Auto) 0.3, Neut # (Auto) 10.5 H, Lymph # (Auto) 1.2, [place] # (Auto) 0.6, Eos # (Auto) 0.0, Baso # (Auto) 0.0 01/28/19 20:50: Sodium 149 H, Potassium 4.1, Chloride 114 H, Carbon Dioxide 33 H , Anion Gap 6.1, BUN 26 H, Creatinine 0.83, Estimated Creat Clear 84, Estimated GFR 67, Est GFR ( Amer) 81, Glucose 114 H, Calcium 8.9, Magnesium 2.4 H, Total Bilirubin 0.2, AST 19, ALT 23, Alkaline Phosphatase 96, Troponin I 0.05, Total Protein 6.0 L, Albumin 2.0 L, Globulin 4.0 H, Albumin/Globulin Ratio 0.5 L , TSH 3.13, Plasma/Serum Alcohol 0 01/28/19 20:50: Lactate 0.3 L 01/28/19 21:11: POC Glucose 107 01/28/19 21:20: Ammonia 42 01/28/19 22:55: Urine Color Yellow, Urine Appearance Clear, Urine pH 6.0, Ur Specific [place] >= 1.030, Urine Protein 1+, Urine Glucose (UA) Negative, Urine Ketones Negative, Urine Blood 1+, Urine Nitrate Negative, Urine Bilirubin Negative, Urine Urobilinogen 0.2, Ur Leukocyte Esterase Negative, Urine RBC 10- 20, Urine WBC 3-5, Ur Squamous Epith Cells 3-5 01/28/19 22:55: Urine Opiates Screen Positive H, Urine Methadone Screen Negative, Ur Barbituates Screen Negative, Ur Phencyclidine Scrn Negative, Ur Amphetamines Screen Negative, U Benzodiazepines Scrn Positive H, Urine Cocaine Screen Negative, U Marijuana (THC) Screen Negative 01/29/19 00:44: Troponin I 0.03 01/29/19 03:05: Troponin I 0.04 01/29/19 05:45: WBC 10.8, RBC 3.49 L, Hgb 9.2 L, Hct 32.0 L, MCV 91.7, MCH 26.3 L, MCHC 28.7 L, RDW 15.9, Plt Count 200, MPV 7.7, Neut % (Auto) 83.6 H, Lymph % (Auto) 9.7 L, [place] % (Auto) 6.3, Eos % (Auto) 0.1, Baso % (Auto) 0.2, Neut # (Auto) 9.0 H, Lymph # (Auto) 1.1, [place] # (Auto) 0.7, Eos # (Auto) 0.0, Baso # (Auto) 0.0 01/29/19 05:45: Sodium 150 H, Potassium 3.9, Chloride 117 H, Carbon Dioxide 31, Anion Gap 5.9, BUN 25 H, Creatinine 0.78, Estimated Creat Clear 71, Estimated GFR 72, Est GFR ( Amer) 87, Glucose 106, Calcium 9.0, Magnesium 2.3 H, Total Bilirubin 0.2, AST 22, ALT 27, Alkaline Phosphatase 99, Troponin I 0.04, Total Protein 5.7 L, Albumin 2.0 L, Globulin 3.7 H, Albumin/Globulin Ratio 0.5 L Medical History: Reports:: Anxiety, Congestive Heart Failure, Hyperlipidemia, Hypertension, Urinary Tract Infection Denies:: Cancer, Diabetes Mellitus Type 1, Diabetes Mellitus Type 2, MRSA Assessment and Plan - Assessment and plan all Dx Assessment and Plan for all problems:: BASED ON PATIENT FACTORS, RECOMMEND VANCOMYCIN 1,750MG IV EVERY 18 HOURS TO BEGIN TODAY AT 1300. PHARMACY WILL MONITOR AND ADJUST DOSE APPROPRIATE. -MARCELL MARRERO, REMAD
--- NOTE | 2019-01-29 09:22 | History & Physical Report ---
*Admission Date: 01/29/19 *Chief complaint: sob *History of present illness: 73 yr old female presents to ER via EMS from [facility] for AMS. Pt discharged from this hospital around lunch time yesterday to [facility]. Pt was admitted for pneumonia and c. difficile. Pt improved and was subsequently disc harged on iv antibiotics and oral vanc. Per ed record when pt arrived she was obtunded and nonverbal. Pt placed on bipap and admitted for further work up. [facility] History I have reviewed the patient's past medical history: Yes Medical History: Reports:: Anxiety, Congestive Heart Failure, Hyperlipidemia, Hypertension, Urinary Tract Infection Denies:: Cancer, Diabetes Mellitus Type 1, Diabetes Mellitus Type 2, MRSA *Have you ever received a pneumonia vaccine?: Yes *Have you received a flu vaccine this season?: Yes Other Medical History: Reports: Thyroid Disease Other Surgeries: Yes: Other Amputation: No - *Social History Smoking Status: Former smoker Tobacco Type: cigarettes # Packs/Day (cigarettes): 1 Alcohol Intake: never *Occupational Status:: retired, disabled Housing: [facility] *Travel in the last 8 weeks: None - Psychiatric History Pschychiatric History:: Reports:: Anxiety Family Hx:: Heart Attack, Hypertension, Stroke Review of Systems - Review of Systems Review of systems:: unable to obtain, pertinent systems reviewed and negative unless documented below [facility] Home Medications Medication Instructions Recorded Confirmed Type ARIPiprazole [Abilify 5mg Tablet] 5 mg PO DAILY 01/25/19 01/29/19 History Atorvastatin Calcium [Lipitor 10mg 10 mg PO HS 01/25/19 01/29/19 History Tablet] Carvedilol [Carvedilol 25mg Tab] 25 mg PO BID 01/25/19 01/29/19 History Donepezil HCl [Aricept 5mg 5 mg PO DAILY 01/25/19 01/29/19 History Tablet] Doxazosin Mesylate [Cardura 4mg 4 mg PO DAILY 01/25/19 01/29/19 History Tab] Levothyroxine Sodium 112 mcg PO DAILY 01/25/19 01/29/19 History [Levothyroxine 112mcg (0.112mg) Tab] Magnesium Oxide 400 mg PO DAILY 01/25/19 01/29/19 History Oxycodone HCl/Acetaminophen 1 tab PO Q6H 01/25/19 01/28/19 History [Oxycodone W/Apap 325mg Tablet] Sucralfate [Carafate 1gm Tab] 1 gm PO BID 01/25/19 01/29/19 History Thiamine HCl [Vitamin B-1] 100 mg PO DAILY 01/25/19 01/29/19 History chlordiazePOXIDE HCl [Librium 25mg 25 mg PO BID 01/25/19 01/29/19 History Capsule] Acetaminophen 500 mg PO Q6HP PRN 01/26/19 01/28/19 History Lactulose [Lactulose 10gm/15ml 30 gm PO DAILYP PRN 01/26/19 01/28/19 History Oral Soln] Ondansetron HCl [Ondansetron 4mg 4 mg PO Q6HP PRN 01/26/19 01/28/19 History Tablet] Propylene Glycol/Peg 400 [Systane 1 drp OP BIDP PRN 01/26/19 01/28/19 History 0.3-0.4% Eye Drops] Amlodipine Besylate [Norvasc 10mg 10 mg PO DAILY 01/28/19 01/29/19 History tablet] Cefepime HCl [Maxipime] 1 gm IV Q12 01/28/19 01/29/19 History Vancomycin HCl [Vancomycin 500mg 125 mg PO Q6 01/28/19 01/29/19 History vial] levoFLOXacin [Levaquin 500mg 500 mg PO DAILY 01/28/19 01/29/19 History tab] Allergies Allergy/AdvReac Type Severity Reaction Status Date / Time Sulfa (Sulfonamide Allergy Unknown Verified 01/29/19 02:59 Antibiotics) Exam Vital signs and Labs for Last 24 Hours: Temp Pulse Resp BP Pulse Ox 98.7 F 22 L 22 161/58 H 98 01/29/19 08:00 01/29/19 08:00 01/29/19 08:00 01/29/19 08:00 01/29/19 08:00 Laboratory Results - last 24 hr 01/28/19 20:50: WBC 12.4 H D, RBC 3.75 L, Hgb 9.8 L, Hct 34.2 L, MCV 91.2, MCH 26.2 L, MCHC 28.8 L, RDW 15.8, Plt Count 228, MPV 7.6, Neut % (Auto) 84.4 H, Lymph % (Auto) 9.9 L, [place] % (Auto) 5.1, Eos % (Auto) 0.2, Baso % (Auto) 0.3, Neut # (Auto) 10.5 H, Lymph # (Auto) 1.2, [place] # (Auto) 0.6, Eos # (Auto) 0.0, Baso # (Auto) 0.0 01/28/19 20:50: Sodium 149 H, Potassium 4.1, Chloride 114 H, Carbon Dioxide 33 H , Anion Gap 6.1, BUN 26 H, Creatinine 0.83, Estimated Creat Clear 84, Estimated GFR 67, Est GFR ( Amer) 81, Glucose 114 H, Calcium 8.9, Magnesium 2.4 H, Total Bilirubin 0.2, AST 19, ALT 23, Alkaline Phosphatase 96, Troponin I 0.05, Total Protein 6.0 L, Albumin 2.0 L, Globulin 4.0 H, Albumin/Globulin Ratio 0.5 L , TSH 3.13, Plasma/Serum Alcohol 0 01/28/19 20:50: Lactate 0.3 L 01/28/19 21:11: POC Glucose 107 01/28/19 21:20: Ammonia 42 01/28/19 22:55: Urine Color Yellow, Urine Appearance Clear, Urine pH 6.0, Ur Specific [place] >= 1.030, Urine Protein 1+, Urine Glucose (UA) Negative, Urine Ketones Negative, Urine Blood 1+, Urine Nitrate Negative, Urine Bilirubin Negative, Urine Urobilinogen 0.2, Ur Leukocyte Esterase Negative, Urine RBC 10- 20, Urine WBC 3-5, Ur Squamous Epith Cells 3-5 01/28/19 22:55: Urine Opiates Screen Positive H, Urine Methadone Screen Negative, Ur Barbituates Screen Negative, Ur Phencyclidine Scrn Negative, Ur Amphetamines Screen Negative, U Benzodiazepines Scrn Positive H, Urine Cocaine Screen Negative, U Marijuana (THC) Screen Negative 01/29/19 00:44: Troponin I 0.03 01/29/19 03:05: Troponin I 0.04 01/29/19 05:45: WBC 10.8, RBC 3.49 L, Hgb 9.2 L, Hct 32.0 L, MCV 91.7, MCH 26.3 L, MCHC 28.7 L, RDW 15.9, Plt Count 200, MPV 7.7, Neut % (Auto) 83.6 H, Lymph % (Auto) 9.7 L, [place] % (Auto) 6.3, Eos % (Auto) 0.1, Baso % (Auto) 0.2, Neut # (Auto) 9.0 H, Lymph # (Auto) 1.1, [place] # (Auto) 0.7, Eos # (Auto) 0.0, Baso # (Auto) 0.0 01/29/19 05:45: Sodium 150 H, Potassium 3.9, Chloride 117 H, Carbon Dioxide 31, Anion Gap 5.9, BUN 25 H, Creatinine 0.78, Estimated Creat Clear 71, Estimated GFR 72, Est GFR ( Amer) 87, Glucose 106, Calcium 9.0, Magnesium 2.3 H, Total Bilirubin 0.2, AST 22, ALT 27, Alkaline Phosphatase 99, Troponin I 0.04, Total Protein 5.7 L, Albumin 2.0 L, Globulin 3.7 H, Albumin/Globulin Ratio 0.5 L I & O for Last 24 hours: Intake & Output 01/26/19 01/27/19 01/28/19 01/29/19 11:59 11:59 11:59 11:59 Intake Total 1694 / 1694 Output Total 325 / 325 Balance 1369 / 1369 Weight 204 lb 2 oz - Constitutional mild distress, obese, chronically ill appearing - *Routine HEENT Exam Head: Present: normocephalic Eye: Present: EOMI, PERRL ENT: Present: mucous membranes moist - *Routine Neck Exam Present: supple. Absent: lymphadenopathy - *Routine Respiratory Exam Present: wheezes, diminished air movement - *Routine Cardiovascular Exam Present: RRR - *Routine Abdominal Exam Present: soft, normoactive bowel sounds. Absent: tenderness - *Routine Extremities Exam Present: edema. Absent: cyanosis, clubbing - *Routine Skin Exam Present: intact, warm. Absent: rash - *Routine Neurological Exam Present: altered mental status - Routine Psychiatric Exam Present: unable to assess Assessment and Plan - Assessment and plan all Dx Assessment and Plan for all problems:: rounded with besson all orders per besson continue bipap monitor vs start home meds restart iv antibotics
[2019-01-29 14:43] LABS: ABG PH 7.18 mmol/L (7.35-7.45)
[2019-01-29 14:44] LABS: ABG HCO3 32.8 mmhg (22.0-26.0); ABG PCO2 90.1 mmhg (35.0-45.0); ABG PO2 51.4 mmhg (80-100)
[2019-01-29 14:45] LABS: ABG Base Excess 4.4 mmol/L (-2.4-2.3); ABG Oxygen Saturation 85 % (90-100); ABG TCO2 35.6 mmhg (23-27)
[2019-01-29 14:46] LABS: Allen's Test PATIENT UNABLE; Oxygen 15 LPM CPAP %
[2019-01-30 06:32] LABS: Basophils % 0.3 % (0.1-2.0); Eosinophils # 0.1 K/mm3 (0.0-0.4); Eosinophils % 1.3 % (0.1-12.0); Hematocrit 31.7 % (37.0-47.0); Hemoglobin 9.4 g/dL (12.2-16.2); Lymphocytes # 1.1 K/mm3 (0.7-4.5); Lymphocytes % 14.3 % (10-50); Mean Corpuscular HGB Conc 29.6 g/dL (31.8-35.4); Mean Corpuscular Volume 88.8 fl (81-99); Mean Platelet Volume 7.5 fl (7.4-10.4); Monocytes # 0.5 K/mm3 (0.1-1.0); Neutrophils # 6.2 K/mm3 (1.8-7.8); Neutrophils % 78.1 % (37.0-80.0); Platelet Count 226 K/mm3 (142-424); Red Blood Count 3.57 M/mm3 (4.20-5.40); Red Cell Distribution Width 15.9 % (11.5-17.5); White Blood Count 7.9 K/mm3 (4.8-10.8)
[2019-01-30 07:42] LABS: Anion Gap 10.1 mEq/L (5-15); Calcium 8.6 mg/dL (8.5-10.1)
--- NOTE | 2019-01-30 08:09 | Progress Note ---
Internal Medicine - PN: Subj *Date: 01/30/19 *Time: 08:06 Interval history: Patient is more alert today and responsive. Complains of stomach pain, however nurses have reported no complaints overnight. She is n.p.o. because of her obtunded status yesterday and pending bedside swallowing evaluation today. Exam Vital signs and Labs for Last 24 Hours: Temp Pulse Resp BP Pulse Ox 98.4 F 70 18 184/78 H 89 L 01/30/19 07:19 01/30/19 07:19 01/30/19 07:01/30/19 07:01/30/19 07:19 Laboratory Results - last 24 hr 01/28/19 20:39: Specimen Source Left radial, O2 % 15 lpm cpap, ABG pH 7.18 L*, ABG pCO2 90.1 H, ABG pO2 51.4 L, ABG HCO3 32.8 H, ABG Total CO2 35.6 H, ABG O2 Saturation 85 L*, ABG Base Excess 4.4 H, Braulio Test Patient unable 01/30/19 06:05: WBC 7.9 D, RBC 3.57 L, Hgb 9.4 L, Hct 31.7 L, MCV 88.8, MCH 26.3 L, MCHC 29.6 L, RDW 15.9, Plt Count 226, MPV 7.5, Neut % (Auto) 78.1, Lymph % (Auto) 14.3, [place] % (Auto) 6.0, Eos % (Auto) 1.3, Baso % (Auto) 0.3, Neut # (Auto) 6.2, Lymph # (Auto) 1.1, [place] # (Auto) 0.5, Eos # (Auto) 0.1, Baso # (Auto) 0.0 01/30/19 06:05: Sodium 153 H*, Potassium 3.1 L D, Chloride 114 H, Carbon Dioxide 32, Anion Gap 10.1, BUN 21 H, Creatinine 0.72, Estimated Creat Clear 71, Estimated GFR 79, Est GFR ( Amer) 96, Glucose 100, Calcium 8.6 I & O for Last 24 hours: Intake & Output 01/27/19 01/28/19 01/29/19 01/30/19 11:59 11:59 11:59 11:59 Intake Total 1694 / 1694 2241 / 2241 Output Total 325 / 325 1800 / 1800 Balance 1369 / 1369 441 / 441 Weight 204 lb 2.016 oz 204 lb 7 oz Narrative: Patient is awake, responds to voice, able to answer questions. Vastly improved over yesterday. Anterior lung mandujano are rhonchorous, symmetric air entry. Heart rate bradycardic but regular. Abdomen is soft, normal bowel sounds. Extremities have her obesity related edema, however she is able to move all of them although is very globally weak. Assessment and Plan (1) Altered mental status Current visit: Yes Status: Acute Qualifiers: Altered mental status type: persistent vegetative state Qualified Code(s): R40.3 - Persistent vegetative state Category: Medical Code(s): R41.82 - Altered mental status, unspecified (2) Hypernatremia Current visit: Yes Status: Acute Category: Medical Code(s): E87.0 - Hyperosmolality and hypernatremia (3) Hypoxia Current visit: Yes Status: Acute Category: Medical Code(s): R09.02 - Hypoxemia (4) Pneumonia Current visit: Yes Status: Acute Qualifiers: Pneumonia type: due to unspecified organism Laterality: unspecified lateral ity Lung location: unspecified part of lung Qualified Code(s): J18.9 - Pneumonia, unspecified organism Category: Medical Code(s): J18.9 - Pneumonia, unspecified organism - Assessment and plan all Dx Assessment and Plan for all problems:: Overall conditions are improving. Possibly related to holding her pain medications which she is taking at the [facility] on a scheduled basis and in a fairly high dose for her age. Continue antibiotics. Continue diet advance if cleared by speech therapy. Watch blood pressure carefully, may need the addition of LOKESH inhibitors over the next couple of shifts. Hypernatremia noted. Change IV fluids to half-normal saline
[2019-01-31 06:31] LABS: Basophils % 0.2 % (0.1-2.0); Eosinophils # 0.1 K/mm3 (0.0-0.4); Eosinophils % 1.6 % (0.1-12.0); Hematocrit 31.7 % (37.0-47.0); Hemoglobin 9.5 g/dL (12.2-16.2); Lymphocytes # 1.4 K/mm3 (0.7-4.5); Lymphocytes % 15.7 % (10-50); Mean Corpuscular HGB Conc 29.9 g/dL (31.8-35.4); Mean Corpuscular Volume 87.3 fl (81-99); Mean Platelet Volume 7.3 fl (7.4-10.4); Monocytes # 0.8 K/mm3 (0.1-1.0); Monocytes % 8.5 % (1.7-9.3); Neutrophils # 6.5 K/mm3 (1.8-7.8); Neutrophils % 74.1 % (37.0-80.0); Platelet Count 229 K/mm3 (142-424); Red Blood Count 3.63 M/mm3 (4.20-5.40); Red Cell Distribution Width 15.7 % (11.5-17.5); White Blood Count 8.8 K/mm3 (4.8-10.8)
[2019-01-31 06:39] LABS: Anion Gap 6.7 mEq/L (5-15); Calcium 8.6 mg/dL (8.5-10.1)
--- NOTE | 2019-01-31 08:41 | Progress Note ---
Internal Medicine - PN: Subj *Date: 01/31/19 *Time: 08:40 Interval history: Patient is more alert. Is complaining of more pain. No issues overnight with oxygenation status, vital signs have been unremarkable. Exam Vital signs and Labs for Last 24 Hours: Temp Pulse Resp BP Pulse Ox 98.4 F 78 22 161/60 H 97 01/31/19 08:00 01/31/19 08:00 01/31/19 08:00 01/31/19 08:00 01/31/19 08:00 Laboratory Results - last 24 hr 01/31/19 06:00: WBC 8.8, RBC 3.63 L, Hgb 9.5 L, Hct 31.7 L, MCV 87.3, MCH 26.1 L , MCHC 29.9 L, RDW 15.7, Plt Count 229, MPV 7.3 L, Neut % (Auto) 74.1, Lymph % (Auto) 15.7, [place] % (Auto) 8.5, Eos % (Auto) 1.6, Baso % (Auto) 0.2, Neut # (Auto) 6.5, Lymph # (Auto) 1.4, [place] # (Auto) 0.8, Eos # (Auto) 0.1, Baso # (Auto) 0.0 01/31/19 06:00: Sodium 145, Potassium 2.7 L*, Chloride 106, Carbon Dioxide 35 H, Anion Gap 6.7, BUN 17, Creatinine 0.83, Estimated Creat Clear 70, Estimated GFR 67, Est GFR ( Amer) 81, Glucose 102, Calcium 8.6 I & O for Last 24 hours: Intake & Output 01/28/19 01/29/19 01/30/19 01/31/19 11:59 11:59 11:59 11:59 Intake Total 1794 / 1794 2241 / 2241 1915 / 1915 Output Total 325 / 325 1800 / 1800 3800 / 3800 Balance 1469 / 1469 441 / 441 -1885 / -1885 Weight 204 lb 2.016 oz 204 lb 7 oz 200 lb 6 oz Narrative: Patient is awake, alert. Anterior lung mandujano are clear, better air entry. Heart rate regular. Abdomen soft. Assessment and Plan (1) Altered mental status Current visit: Yes Status: Acute Qualifiers: Altered mental status type: persistent vegetative state Qualified Code(s): R40.3 - Persistent vegetative state Category: Medical Code(s): R41.82 - Altered mental status, unspecified (2) Hypernatremia Current visit: Yes Status: Acute Category: Medical Code(s): E87.0 - Hyperosmolality and hypernatremia (3) Hypoxia Current visit: Yes Status: Acute Category: Medical Code(s): R09.02 - Hypoxemia (4) Pneumonia Current visit: Yes Status: Acute Qualifiers: Pneumonia type: due to unspecified organism Laterality: unspecified laterality Lung location: unspecified part of lung Qualified Code(s): J18.9 - Pneumonia, unspecified organism Category: Medical Code(s): J18.9 - Pneumonia, unspecified organism (5) Hypokalemia Current visit: Yes Status: Acute Category: Medical Code(s): E87.6 - Hypokalemia - Assessment and plan all Dx Assessment and Plan for all problems:: Altered mental status improving. Given her ongoing chronic pain and long-term opiate dependence I will restart lower dose oxycodone today at every 6 PRN for severe pain only. I discussed with her and her daughter that we will need to reduce her pain medication going forward to prevent hypercapnia again. Replace hypokalemia noted on labs today with oral potassium. Check labs tomorrow. Consider transfer back to [facility] tomorrow.
[2019-02-01 06:10] LABS: Basophils % 0.2 % (0.1-2.0); Eosinophils # 0.4 K/mm3 (0.0-0.4); Lymphocytes # 1.5 K/mm3 (0.7-4.5); Lymphocytes % 21.1 % (10-50); Mean Corpuscular HGB Conc 30.6 g/dL (31.8-35.4); Mean Corpuscular Volume 86.6 fl (81-99); Mean Platelet Volume 7.6 fl (7.4-10.4); Monocytes # 0.5 K/mm3 (0.1-1.0); Monocytes % 7.7 % (1.7-9.3); Neutrophils # 4.6 K/mm3 (1.8-7.8); Platelet Count 194 K/mm3 (142-424); Red Blood Count 3.41 M/mm3 (4.20-5.40)
[2019-02-01 06:11] LABS: Hematocrit 29.5 % (37.0-47.0)
[2019-02-01 06:23] LABS: Calcium 8.3 mg/dL (8.5-10.1)
--- NOTE | 2019-02-01 07:50 | Progress Note ---
Internal Medicine - PN: Subj *Date: 02/01/19 *Time: 07:50 Exam Vital signs and Labs for Last 24 Hours: Temp Pulse Resp BP Pulse Ox 97.6 F 67 22 104/52 L 97 02/01/19 04:00 02/01/19 04:00 02/01/19 04:00 02/01/19 04:00 02/01/19 04:00 Laboratory Results - last 24 hr 02/01/19 05:25: WBC 7.0, RBC 3.41 L, Hgb 9.0 L, Hct 29.5 L, MCV 86.6, MCH 26.5 L , MCHC 30.6 L, RDW 16.0, Plt Count 194, MPV 7.6, Neut % (Auto) 65.0, Lymph % (Auto) 21.1, [place] % (Auto) 7.7, Eos % (Auto) 6.0, Baso % (Auto) 0.2, Neut # (Auto) 4.6, Lymph # (Auto) 1.5, [place] # (Auto) 0.5, Eos # (Auto) 0.4, Baso # (Auto) 0.0 02/01/19 05:25: Sodium 144, Potassium 3.0 L, Chloride 105, Carbon Dioxide 37 H, Anion Gap 5.0, BUN 18, Creatinine 0.98, Estimated Creat Clear 69, Estimated GFR 55 L, Est GFR ( Amer) 67, Glucose 94, Calcium 8.3 L I & O for Last 24 hours: Intake & Output 01/29/19 01/30/19 01/31/19 02/01/19 23:59 23:59 23:59 23:59 Intake Total 2866 / 2866 1389 / 1389 2275 / 2275 Output Total 1225 / 1225 3700 / 3700 3000 / 3000 600 / 600 Balance 1641 / 1641 -2311 / -2311 -725 / -725 -600 / -600 Weight 92.59 kg 92.731 kg 90.889 kg 89.471 kg Microbiology Reports for the Last 24 Hours: Microbiology 01/28/19 20:50 Blood - Not Otherwise Specified Blood Culture - Preliminary NO GROWTH AFTER 48 HOURS 01/28/19 20:50 Blood - Not Otherwise Specified Blood Culture - Preliminary NO GROWTH AFTER 48 HOURS Assessment and Plan (1) Altered mental status Current visit: Yes Status: Acute Qualifiers: Altered mental status type: persistent vegetative state Qualified Code(s): R40.3 - Persistent vegetative state Category: Medical Code(s): R41.82 - Altered mental status, unspecified (2) Hypernatremia Current visit: Yes Status: Acute Category: Medical Code(s): E87.0 - Hyperosmolality and hypernatremia (3) Hypoxia Current visit: Yes Status: Acute Category: Medical Code(s): R09.02 - Hypoxemia (4) Pneumonia Current visit: Yes Status: Acute Qualifiers: Pneumonia type: due to unspecified organism Laterality: unspecified laterality Lung location: unspecified part of lung Qualified Code(s): J18.9 - Pneumonia, unspecified organism Category: Medical Code(s): J18.9 - Pneumonia, unspecified organism (5) Hypokalemia Current visit: Yes Status: Acute Category: Medical Code(s): E87.6 - Hypokalemia The patient's infection will respond to the chosen ABx?: Yes Is the patient receiving the right drug, dose, and route?: Yes Could a more targeted ABx be ordered?: No
--- NOTE | 2019-02-01 10:51 | Progress Note ---
Internal Medicine - PN: Subj *Date: 02/01/19 *Time: 12:12 Interval history: pt laying in bed, daughter at bedside Exam Vital signs and Labs for Last 24 Hours: Temp Pulse Resp BP Pulse Ox 98.7 F 72 24 154/70 H 94 L 02/01/19 07:50 02/01/19 07:50 02/01/19 07:50 02/01/19 07:50 02/01/19 07:50 Laboratory Results - last 24 hr 02/01/19 05:25: WBC 7.0, RBC 3.41 L, Hgb 9.0 L, Hct 29.5 L, MCV 86.6, MCH 26.5 L , MCHC 30.6 L, RDW 16.0, Plt Count 194, MPV 7.6, Neut % (Auto) 65.0, Lymph % (Auto) 21.1, [place] % (Auto) 7.7, Eos % (Auto) 6.0, Baso % (Auto) 0.2, Neut # (Auto) 4.6, Lymph # (Auto) 1.5, [place] # (Auto) 0.5, Eos # (Auto) 0.4, Baso # (Auto) 0.0 02/01/19 05:25: Sodium 144, Potassium 3.0 L, Chloride 105, Carbon Dioxide 37 H, Anion Gap 5.0, BUN 18, Creatinine 0.98, Estimated Creat Clear 69, Estimated GFR 55 L, Est GFR ( Amer) 67, Glucose 94, Calcium 8.3 L I & O for Last 24 hours: Intake & Output 01/29/19 01/30/19 01/31/19 02/01/19 11:59 11:59 11:59 11:59 Intake Total 1794 / 1794 2241 / 2241 2014 840 / 840 Output Total 325 / 325 1800 / 1800 3800 / 3800 2600 / 2600 Balance 1469 / 1469 441 / 441 -1785 / -1785 -1760 / -1760 Weight 204 lb 2.016 oz 204 lb 7 oz 200 lb 6 oz 197 lb 4 oz Microbiology Reports for the Last 24 Hours: Microbiology 01/28/19 20:50 Blood - Not Otherwise Specified Blood Culture - Preliminary NO GROWTH AFTER 48 HOURS 01/28/19 20:50 Blood - Not Otherwise Specified Blood Culture - Preliminary NO GROWTH AFTER 48 HOURS - Constitutional no acute distress - *Routine HEENT Exam Head: Present: normocephalic Eye: Present: EOMI, PERRL ENT: Present: mucous membranes moist - *Routine Neck Exam Present: supple, full ROM - *Routine Respiratory Exam Present: rhonchi, diminished air movement - *Routine Cardiovascular Exam Present: RRR - *Routine Abdominal Exam Present: soft, normoactive bowel sounds. Absent: tenderness - *Routine Extremities Exam Present: full ROM. Absent: cyanosis, clubbing, edema - *Routine Skin Exam Present: intact, warm. Absent: rash - *Routine Neurological Exam Present: alert answers question sandra - Routine Psychiatric Exam Present: normal affect Assessment and Plan (1) Altered mental status Current visit: Yes Status: Acute Qualifiers: Altered mental status type: persistent vegetative state Qualified Code(s): R40.3 - Persistent vegetative state Category: Medical Code(s): R41.82 - Altered mental status, unspecified (2) Hypernatremia Current visit: Yes Status: Acute Category: Medical Code(s): E87.0 - Hyperosmolality and hypernatremia (3) Hypoxia Current visit: Yes Status: Acute Category: Medical Code(s): R09.02 - Hypoxemia (4) Pneumonia Current visit: Yes Status: Acute Qualifiers: Pneumonia type: due to unspecified organism Laterality: unspecified laterality Lung location: unspecified part of lung Qualified Code(s): J18.9 - Pneumonia, unspecified organism Category: Medical Code(s): J18.9 - Pneumonia, unspecified organism (5) Hypokalemia Current visit: Yes Status: Acute Category: Medical Code(s): E87.6 - Hypokalemia - Assessment and plan all Dx Assessment and Plan for all problems:: jay rounded earlier all orders per jay will do trial of trilogy' pt would benefit from trilogy noninvasive ventilation device as she needs volume ventilation to treat resp failure and I do not believe she will tolerate higher pressures of bipap nor will they treat her adequately.
--- NOTE | 2019-02-02 10:13 | Discharge Summary ---
General - General Admission date:: 01/29/19 <Singh Lacy - 02/03/19 08:52> 01/29/19 <Prashant Lagunasruben - 02/02/19 10:13> Discharge date: 02/02/19 <Prashant Lagunasbibisavannah - 02/02/19 10:13> HPI HPI: 73 yr old female presents to ER via EMS from [facility] for AMS. Pt discharged from this hospital around lunch time yesterday to F. Pt was admitted for pneumonia and c. difficile. Pt improved and was subsequently discharged on iv antibiotics and oral vanc. Per ed record when pt arrived she was obtunded and nonverbal. Pt placed on bipap and admitted for further work up. <Prashant Lagunasruben - 02/02/19 10:13> Hospital Course Hospital Course: x ray:IMPRESSION: Worsening bilateral pneumonia with effusions on admission pt required bipap for resp distress, was weaned to her regular o2 per nc. Her pain meds were decreased due to over sedation. Iv antibiotics continued and po vanc continued for c diff. She was seen by speech 01/30 and diet recommends Dysphagia Pureed Liquid Type Recommendations Honey Consistency SL Swallow Guidelines Standard Aspiration Prec. Crush Meds Small pills w/applesauce,Crush lge pills w/applesa Dysphagia Swallow Precautions/Strategies Sitting Upright (90 deg), Liquids from Wide Cup,Small Bites and Sips Pt had a trial of trilogy and per staff done well over night. Pt will be dc back to [place] and cbc and cmp to be obtained on . She will continue iv antibiotics for 5 days and po vanc for 4 more days for c diff. Family are going to discuss if they want palliative care with hospice once back at [place]. <beverleyPrashant jungruben - 02/02/19 10:26> Objective Vital signs: Temp Pulse Resp BP Pulse Ox 98.1 F 76 19 142/74 H 96 02/02/19 11:38 02/02/19 11:38 02/02/19 11:38 02/02/19 11:38 02/02/19 11:38 <Singh Lacy - 02/03/19 08:52> Temp Pulse Resp BP Pulse Ox 98.3 F 78 20 174/70 H 95 02/02/19 07:49 02/02/19 07:49 02/02/19 07:49 02/02/19 07:49 02/02/19 07:49 <Luana Lagunas - 02/02/19 10:13> no acute distress, chronically ill appearing <Luana Lagunas - 02/02/19 10:26> - *Routine HEENT Exam Head: Present: normocephalic <Luana Lagunas - 02/02/19 10:26> Eye: Present: PERRL <Luana Lagunas - 02/02/19 10:26> ENT: Present: mucous membranes moist <Luana Lagunas - 02/02/19 10:26> - *Routine Neck Exam Present: supple, full ROM <Luana Lagunas - 02/02/19 10:26> - *Routine Respiratory Exam Present: diminished air movement <Luana Lagunas - 02/02/19 10:26> - *Routine Cardiovascular Exam Present: RRR <Luana Lagunas - 02/02/19 10:26> - *Routine Abdominal Exam Present: soft, normoactive bowel sounds <Luana Lagunas - 02/02/19 10:26> - *Routine Extremities Exam Present: full ROM, normal capillary refill <Luana Lagunas - 02/02/19 10:26> Comments: picc line in place <Luana Lagunas - 02/02/19 10:26> - *Routine Skin Exam Present: intact <Luana Lagunas - 02/02/19 10:26> - *Routine Neurological Exam Present: alert <Luana Lagunas - 02/02/19 10:26> - Routine Psychiatric Exam Present: normal affect <Luana Lagunas - 02/02/19 10:26> Results Labs on day of discharge: Preliminary micro results at discharge 01/28/19 20:50 Blood Culture - Preliminary Blood - Not Otherwise Specified NO GROWTH AFTER 48 HOURS 01/28/19 20:50 Blood Culture - Preliminary Blood - Not Otherwise Specified NO GROWTH AFTER 48 HOURS <Singh Lacy - 02/03/19 08:52> Preliminary micro results at discharge 01/28/19 20:50 Blood Culture - Preliminary Blood - Not Otherwise Specified NO GROWTH AFTER 48 HOURS 01/28/19 20:50 Blood Culture - Preliminary Blood - Not Otherwise Specified NO GROWTH AFTER 48 HOURS <Luana Lagunas - 02/02/19 10:13> - Additional Comments Rounded with nurse practitioner on 02/02/19 at 830 am. Agree with exam findings and care plan as documented. [facility] with transition to Hospice care after completion of therapeutic regimen including Abx. <Singh Lacy - 02/03/19 08:52> rounded with Dr Lacy all orders per Dr Lacy <Luana Lagunas - 02/02/19 10:26> DS: Diagnosis - Discharge Diagnosis (1) Altered mental status Status: Acute (2) Hypernatremia Status: Acute (3) Hypoxia Status: Acute (4) Pneumonia Status: Acute (5) Hypokalemia Status: Acute (6) Bacteremia Status: Acute (7) C. difficile diarrhea Status: Acute <uLana Lagunas - 02/02/19 10:16> (1) Altered mental status Status: Acute (2) Hypernatremia Status: Acute (3) Hypoxia Status: Acute (4) Pneumonia Status: Acute (5) Hypokalemia Status: Acute (6) Bacteremia Status: Acute (7) C. difficile diarrhea Status: Acute <Singh Lacy - 02/03/19 08:52> Discharge Plan - Patient Discharge Instructions ACTIVITY: Continue current activity <Luana Lagunas - 02/02/19 10:26> DIET: continue same diet <Luana Lagunas - 02/02/19 10:26> Patient Instructions: DI for Pneumonia -- Adult, DI for Anemia of Chronic Disease, DI for Hypernatremia, DI for Altered Mental Status, DI for Hypoxia, DI for Leukocytosis <Singh Lacy - 02/03/19 08:52> Forms: <Singh Lacy - 02/03/19 08:52> - Follow up Plan Follow up with: Luana Lagunas APRN [Advanced Practice Nurse] - <Singh Lacy - 02/03/19 08:52> Disposition: Xfer SNF <Singh Lacy - 02/03/19 08:52> Home Medications: Home Medications Medication Instructions Recorded Confirmed Type ARIPiprazole [Abilify 5mg Tablet] 5 mg PO DAILY 01/25/19 01/29/19 History Atorvastatin Calcium [Lipitor 10mg 10 mg PO HS 01/25/19 01/29/19 History Tablet] Carvedilol [Carvedilol 25mg Tab] 25 mg PO BID 01/25/19 01/29/19 History Donepezil HCl [Aricept 5mg 5 mg PO DAILY 01/25/19 01/29/19 History Tablet] Doxazosin Mesylate [Cardura 4mg 4 mg PO DAILY 01/25/19 01/29/19 History Tab] Levothyroxine Sodium 112 mcg PO DAILY 01/25/19 01/29/19 History [Levothyroxine 112mcg (0.112mg) Tab] Magnesium Oxide 400 mg PO DAILY 01/25/19 01/29/19 History Oxycodone HCl/Acetaminophen 1 tab PO Q6H 01/25/19 01/28/19 History [Oxycodone W/Apap 325mg Tablet] Sucralfate [Carafate 1gm Tab] 1 gm PO BID 01/25/19 01/29/19 History Thiamine HCl [Vitamin B-1] 100 mg PO DAILY 01/25/19 01/29/19 History Acetaminophen 500 mg PO Q6HP PRN 01/26/19 01/28/19 History Lactulose [Lactulose 10gm/15ml 30 gm PO DAILYP PRN 01/26/19 01/28/19 History Oral Soln] Propylene Glycol/Peg 400 [Systane 1 drp OP BIDP PRN 01/26/19 01/28/19 History 0.3-0.4% Eye Drops] Amlodipine Besylate [Norvasc 10mg 10 mg PO DAILY 01/28/19 01/29/19 History tablet] Cefepime HCl [Maxipime] 1 gm IV Q12 01/28/19 01/29/19 History levoFLOXacin [Levaquin 500mg 500 mg PO DAILY 01/28/19 01/29/19 History tab] Cefepime HCl [Maxipime 1gm Vial] 1 gm IV Q12H 5 Days #10 vial 02/02/19 Rx Vancomycin HCl [Vancomycin 500mg 125 mg PO QID 4 Days vial 02/02/19 Rx vial] chlordiazePOXIDE HCl [Librium 10mg 0 mg PO BID 30 Days #60 cap 02/02/19 Rx Capsule] levoFLOXacin [Levaquin 500mg 500 mg PO DAILY #5 tab 02/02/19 Rx tab] <Singh Lacy - 02/03/19 08:52> Prescriptions/Medication Reconciliation: New levoFLOXacin [Levaquin 500mg tab] 500 mg PO DAILY #5 tab Cefepime HCl [Maxipime 1gm Vial] 1 gm IV Q12H 5 Days #10 vial chlordiazePOXIDE HCl [Librium 10mg Capsule] 0 mg PO BID 30 Days #60 cap Vancomycin HCl [Vancomycin 500mg vial] 125 mg PO QID 4 Days vial Continued Sucralfate [Carafate 1gm Tab] 1 gm PO BID Levothyroxine Sodium [Levothyroxine 112mcg (0.112mg) Tab] 112 mcg PO DAILY Atorvastatin Calcium [Lipitor 10mg Tablet] 10 mg PO HS ARIPiprazole [Abilify 5mg Tablet] 5 mg PO DAILY Thiamine HCl [Vitamin B-1] 100 mg PO DAILY Oxycodone HCl/Acetaminophen [Oxycodone W/Apap 325mg Tablet] 1 tab PO Q6H Magnesium Oxide 400 mg PO DAILY Doxazosin Mesylate [Cardura 4mg Tab] 4 mg PO DAILY Donepezil HCl [Aricept 5mg Tablet] 5 mg PO DAILY Acetaminophen 500 mg PO Q6HP PRN PRN Reason: As Needed For Fever Or Pain Lactulose [Lactulose 10gm/15ml Oral Soln] 30 gm PO DAILYP PRN PRN Reason: STOMACH Propylene Glycol/Peg 400 [Systane 0.3-0.4% Eye Drops] 1 drp OP BIDP PRN PRN Reason: DRY EYES Amlodipine Besylate [Norvasc 10mg tablet] 10 mg PO DAILY Cefepime HCl [Maxipime] 1 gm IV Q12 levoFLOXacin [Levaquin 500mg tab] 500 mg PO DAILY Carvedilol [Carvedilol 25mg Tab] 25 mg PO BID Discontinued chlordiazePOXIDE HCl [Librium 25mg Capsule] 25 mg PO BID Ondansetron HCl [Ondansetron 4mg Tablet] 4 mg PO Q6HP PRN PRN Reason: Nausea Vancomycin HCl [Vancomycin 500mg vial] 125 mg PO Q6 <Singh Lacy - 02/03/19 08:52>
== END 2019-02-02 14:35 ==
LOC: 2ND 20:51 → ER 20:51 → 2ND 01-29 00:51
PROVIDERS: ADMIT Family Medicine; ATTEND Internal Medicine Adolescent Medicine
CPT/HCPCS: 36415; 70450; 71010; 71045; 80048; 80053; 80305; 81001; 82140; 82803; 82962; 83605; 83735; 84443; 84484; 85025; 87040; 92610; 93005; 94640; 94660; 94761; 96366; 96374; 99285; G0378; J0692; J1956; J2543; J3370

== ENCOUNTER → 2019-04-16 15:45 | Outpatient (CLI) | payer OTHER, SELFPAY ==
[2019-04-16 15:48] LABS: Microscopic, Urine URINE MICROSCOPIC (MICROSCOPIC)
[2019-04-16 15:53] LABS: Appearance,Urine CLEAR (Clear); Bilirubin,Urine Negative (Negative); Blood, Urine Negative (Negative); Color,Urine YELLOW (Yellow); Glucose,Urine (UA) Negative (Negative); Ketones,Urine Negative (Negative); Leukocyte Esterase,Urine Negative (Negative); Nitrate,Urine Negative (Negative); Protein,Urine Negative (Negative); Specific Gravity, Urine 1.015 (1.005-1.030); Urobilinogen,Urine 0.2 EU/dl (0.2)
[2019-04-16 16:36] LABS: Bacteria,Urine Trace /lpf; WBC,Urine Occasional #/hpf (0-3)
== END ==
PROVIDERS: Visit Provider Emergency Medicine
DX: F44.89 Other dissociative and conversion disorders (principal)
CPT/HCPCS: 81001